=== PATIENT | female | born 1945 | race Caucasian/White ===

== ENCOUNTER 2016-11-13 10:13 | Emergency (ER) | payer MEDICARE, OTHER ==
[2016-11-13] MEDS ORDERED: HYDROmorphone 2 MG/ML SDV IM ONE (10:37)
[2016-11-13] MEDS ORDERED: Ketorolac 30 MG/ML SDV IVPUSH ONE (11:27)
[2016-11-13] MEDS ORDERED: Iopamidol 755 Mg/ML 75 ML Bottle IV ONE (11:51)
[2016-11-13] MEDS ORDERED: Calcium Gluconate 10% 1 GM/10 ML SDV IVPUSH ONE (12:38)
[2016-11-13 13:29] VITALS: BP 136/77
--- NOTE | 2016-11-13 13:47 | ER ---
DATE SEEN: 11/13/2016 CHIEF COMPLAINT: Neck pain. HISTORY OF PRESENT ILLNESS: This is a 71-year-old female complaining of neck pain for 2 days. She had a thyroidectomy, but the pain is more in the posterior aspect of the neck. Oxycodone and acetaminophen have not been helpful. REVIEW OF SYSTEMS: No chest pain. No shortness of breath. The pain does not seem to radiate anywhere. Movement makes it worse. ALLERGIES AND MEDICATIONS: Reviewed and updated on the electronic record. PHYSICAL EXAMINATION: VITAL SIGNS: Blood pressure is normal. Temperature is 97.9. ENT: Negative. NECK: Decreased range of motion. Tenderness in the paraspinal cervical muscles. The thyroidectomy scar appears to be intact with no signs of infection. CARDIOVASCULAR: Normal. RESPIRATORY: Clear. MENTAL STATUS: Alert. LABORATORY DATA: White cell count of 10.9. Sodium 133, potassium 3.6, and calcium 7.8. TSH was within reference range. CT of soft tissue neck, no compromise of the airway. FINAL IMPRESSION: 1. Neck pain, musculoskeletal. 2. Hypocalcemia. PLAN: One ampule of calcium gluconate was given, initially gave her Dilaudid which did not help much. Ketorolac 15 mg IV helped significantly. I discharged her home to continue her regular medications and follow up as previously scheduled. Time seen was 1300 hours. /[id number] LIOR/TRUONG
== END 2016-11-13 13:27 | disposition home or self-care (01) ==
LOC: FB.ED 10:13
DX: M54.2 Cervicalgia (principal); E83.51 Hypocalcemia; E89.0 Postprocedural hypothyroidism
CPT/HCPCS: 36415; 70491; 80053; 84443; 85025; 96372; 96374; 96375; 99283; 99284; J0610; J1170; J1885; Q9967

== ENCOUNTER 2016-11-14 11:46 | Emergency (ER) | payer MEDICARE, OTHER ==
[2016-11-14] MEDS ORDERED: Ketorolac 30 MG/ML SDV IM STA (11:56)
--- NOTE | 2016-11-14 12:17 | EDM.PDOC ---
ED HPI GENERAL MEDICAL PROBLEM - General Chief Complaint: General Stated Complaint: NECK PAIN Time Seen by Provider: 11/14/16 11:56 Source of Information: Reports: Patient, Family History Limitations: Reports: No Limitations - History of Present Illness INITIAL COMMENTS - FREE TEXT/NARRATIVE: 71 years old w f s/p partial thyroidectomy last saturday, came to the ed due to posterior neck pain. Pt was in this ed before for same. She received a pain shot and was sent home with pain meds. Pt ran out of pain meds. Pt denies trauma. Pt denies any other acute medical issue at this time. Onset: Gradual Onset Date: 11/14/16 Onset Time: 06:00 Duration: Hour(s):, Intermittent Location: Reports: Neck Quality: Reports: Ache Severity: Moderate Improves with: Reports: Cold Therapy, Medication Worsens with: Reports: Movement Context: Reports: Other (s/p neck surgery) Associated Symptoms: Reports: No Other Symptoms Neck Pain Score (Numeric/FACES): 5 - Related Data Allergies Allergy/AdvReac Type Severity Reaction Status Date / Time Sulfa (Sulfonamide Allergy Rash Verified 11/14/16 11:55 Antibiotics) Home Meds: Home Meds buPROPion HCl [Wellbutrin Xl] 150 mg PO DAILY 10/04/14 [History] buPROPion HCl [Wellbutrin Xl] 300 mg PO DAILY 10/04/14 [History] busPIRone HCl [Buspirone HCl] 7.5 mg PO DAILY 10/04/14 [History] Alum Hydrox/Mag Hydrox/Simeth [Mag-Al Plus] 30 ml PO BEDTIME PRN 11/13/16 [ History] Calcium Carbonate/Vitamin D3 [Oyster Shell Calcium with Vitamin D] 1 tab PO ASDIRECTED 11/13/16 [History] Cyclobenzaprine [Flexeril] 1 tab PO TID PRN 11/13/16 [History] Omeprazole 20 mg PO BEDTIME 11/13/16 [History] amLODIPine [Norvasc] 1 tab PO DAILY 11/13/16 [History] oxyCODONE HCl/Acetaminophen [oxyCODONE-Acetaminophen 5-325] 1 tab PO Q6H [History] Ibuprofen [Motrin] 600 mg PO Q8H PRN #30 tab 11/14/16 [Rx] Past Medical History - Past Surgical History Other Female Surgeries/Procedures: KIDNEY SURGERY TO REMOVE STONE Other Musculoskeletal Surgeries/Procedures:: back surgery, Lumbar Social & Family History - Tobacco Use Smoking Status *Q: Never Smoker Second Hand Smoke Exposure: No - Caffeine Use Caffeine Use: Reports: Coffee - Alcohol Use Days Per Week of Alcohol Use: 1 Number of Drinks Per Day: 1 Total Drinks Per Week: 1 - Recreational Drug Use Recreational Drug Use: No - Living Situation & Occupation Living situation: Reports: ED ROS GENERAL - Review of Systems Review Of Systems: See Below Constitutional: Reports: No Symptoms HEENT: Reports: No Symptoms Respiratory: Reports: No Symptoms Cardiovascular: Reports: No Symptoms Endocrine: Reports: No Symptoms GI/Abdominal: Reports: No Symptoms : Reports: No Symptoms Musculoskeletal: Reports: Neck Pain Skin: Reports: No Symptoms Neurological: Reports: No Symptoms Psychiatric: Reports: No Symptoms Hematologic/Lymphatic: Reports: No Symptoms Immunologic: Reports: No Symptoms ED EXAM, GENERAL - Physical Exam Exam: See Below Exam Limited By: No Limitations General Appearance: Alert, WD/WN, Mild Distress Eye Exam: Bilateral Eye: Normal Inspection Ears: Normal External Exam Ear Exam: Bilateral Ear: Auricle Normal Nose: Normal Inspection, Normal Mucosa Throat/Mouth: Normal Inspection, Normal Lips Head: Atraumatic, Normocephalic Neck: Normal Inspection, Supple, Non-Tender Respiratory/Chest: No Respiratory Distress Cardiovascular: Normal Peripheral Pulses, Regular Rate, Rhythm Peripheral Pulses: 1+: Femoral (L), Femoral (R) GI/Abdominal: Normal Bowel Sounds, Soft, Non-Tender, No Organomegaly (Female) Exam: Deferred Rectal (Female) Exam: Deferred Back Exam: Decreased Range of Motion, Paraspinal Tenderness Extremities: Normal Inspection, Normal Range of Motion, Non-Tender, No Pedal Edema Neurological: Alert, Oriented, CN II-XII Intact, Normal Cognition, Normal Gait Psychiatric: Normal Affect, Normal Mood Skin Exam: Warm, Dry, Intact, Normal Color, No Rash Lymphatic: No Adenopathy Course - Vital Signs Text/Narrative:: 71 years old w f s/p partial thyroidectomy last saturday, came to the ed due to posterior neck pain. Pt was in this ed before for same. She received a pain shot and was sent home with pain meds. Pt ran out of pain meds. Pt denies trauma. Pt denies any other acute medical issue at this time. PE: Paravertebral tenderness of posterior neck Imaging: Not indicated Impression: Paravertebral tenderness of posterior neck Tx: Toradol 30 mg i.m, ICE to neck Reexam: Improved Plan: D/C with intructions Last Recorded V/S: Last Vital Signs Temp 36.6 C 11/14/16 11:56 Pulse 76 11/14/16 12:42 Resp 16 11/14/16 12:42 BP 111/76 11/14/16 12:42 Pulse Ox 98 11/14/16 12:42 - Orders/Labs/Meds Orders: Active Orders 24 hr Category Date Time Status Cooling Warming Measures [RC] ASDIRECTED Care 11/14/16 12:06 Active Ice Bag [Ice Therapy] [OM.PC] Routine Oth 11/14/16 12:06 Ordered Meds: Medications Discontinued Medications Generic Name Dose Route Start Last Admin Trade Name Freq PRN Reason Stop Dose Admin Ketorolac Tromethamine 30 mg 11/14/16 11:56 11/14/16 12:08 Toradol IM 11/14/16 11:57 30 mg ONETIME STA Administration Departure - Departure Time of Disposition: 12:48 Disposition: Home, Self-Care 01 Condition: Good Clinical Impression: Neck sprain Qualifiers: Encounter type: subsequent encounter Qualified Code(s): S13.9XXD - Sprain of joints and ligaments of unspecified parts of neck, subsequent encounter - Discharge Information Prescriptions: Ibuprofen [Motrin] 600 mg PO Q8H PRN #30 tab PRN Reason: neck pain Referrals: Noah Taveras MD [Primary Care Provider] - Forms: ED Department Discharge Additional Instructions: Please apply ice to neck, please take motrin with food as recommended, please f/ u, please come back if your symptoms get worse acutely - My Orders Last 24 Hours: My Active Orders 11/14/16 12:06 Cooling Warming Measures [RC] ASDIRECTED Ice Bag [Ice Therapy] [OM.PC] Routine - Assessment/Plan Last 24 Hours: My Active Orders 11/14/16 12:06 Cooling Warming Measures [RC] ASDIRECTED Ice Bag [Ice Therapy] [OM.PC] Routine
[2016-11-14 12:43] VITALS: BP 111/76
== END 2016-11-14 12:55 | disposition home or self-care (01) ==
LOC: FB.ED 11:46
DX: S13.9XXD Sprain of joints and ligaments of unspecified parts of neck, subsequent encounter (principal); Z88.2 Allergy status to sulfonamides; Z79.899 Other long term (current) drug therapy; Z98.890 Other specified postprocedural states; X58.XXXD Exposure to other specified factors, subsequent encounter
CPT/HCPCS: 96372; 99282; J1885

== ENCOUNTER 2017-06-27 18:05 | Emergency (ER) | payer MEDICARE, OTHER ==
[2017-06-27] MEDS ORDERED: Sodium Chloride 0.9% 10 ML Syringe FLUSH PRN (19:29)
[2017-06-27] MEDS ORDERED: Sodium Chloride 0.9% 1,000 ML IV SCH (19:30)
[2017-06-27] MEDS ORDERED: Ondansetron 4 MG/2 ML SDV IVPUSH ONE (19:31)
[2017-06-27] MEDS ORDERED: Levofloxacin/Dextrose 5%-Water 500 MG in Premix Bag 1 BAG IV ONE (20:26)
[2017-06-27 22:52] VITALS: BP 126/55
--- NOTE | 2017-06-28 04:19 | ER ---
DATE SEEN: 06/27/2017 CHIEF COMPLAINT: Weakness. HPI: Soraida is a 72-year-old female complaining of weakness generalized, started yesterday. In addition, she has diarrhea and vomiting. Denies any fever or chills or urinary symptoms. PAST MEDICAL HISTORY: Headache due to giant cell arteritis, hyperparathyroidism with frequent kidney stones, major depression, anxiety. ALLERGIES: Sulfa. CURRENT MEDICATIONS: Reviewed. Please see the nurse's notes and the electronic record. PHYSICAL EXAM: GENERAL: She is well hydrated. VITAL SIGNS: Her blood pressure is 122/55, temp is 101.1, pulse is 81, normal oxygenation. EARS, NOSE, and THROAT: Negative. NECK: Supple. CHEST: Clear breath sounds. ABDOMEN: Soft and benign. EXTREMITIES: No edema. LABORATORY DATA: White cell count 17.6. Electrolytes are normal except potassium is 3.3. UA showed more than 20-30 red cells and white cells more than 100 per high power field. IMPRESSION: 1. Gastroenteritis. 2. Acute febrile illness. 3. Bacteriuria. PLAN: 1 L of normal saline was given, 8 mg of Zofran, and 1 dose of Levaquin 500 mg IV, ceftriaxone 1 g. I will send her home on Levaquin 500 mg p.o. daily. We will set up a urine culture and advised the patient to drink fluids. Follow up in the office within 24 hours with PCP. TIME SEEN: 2030 hours. /[id number] LIOR/TRUONG
--- NOTE | 2017-06-28 11:06 | CR ---
INDICATION: Fever. CHEST: PA and lateral views of the chest, 06/27/2017, were compared with 2014 portable, and revealed the heart to be enlarged, the aorta tortuous with calcification in the arch. Overlying snaps are noted. A dextroconcave scoliosis of the lower thoracic spine most likely is compensatory to a dextroconvex scoliosis in the lumbar area. Somewhat demineralized appearance of the bony structures suggests the possibility of osteoporosis - correlate clinically. A definite active infiltrate or effusion was not identified. There is a mild degree of hyperaeration, very minimal flattening of diaphragm leaves and prominent AP diameter all raising question of COPD - correlate clinically, however. IMPRESSION: 1. No definite acute process - no specific area of pneumonia identified. 2. ASHD with mild cardiomegaly. 3. Mild scoliosis. 4. Possible COPD - correlate clinically. 5. Suggestion of osteoporosis - correlate clinically. MTDD
== END 2017-06-27 22:20 | disposition home or self-care (01) ==
LOC: FB.ED 18:05
DX: K52.9 Noninfective gastroenteritis and colitis, unspecified (principal); R82.71 Bacteriuria; Z88.2 Allergy status to sulfonamides
CPT/HCPCS: 36415; 71046; 80048; 81001; 84484; 85025; 87086; 87088; 87186; 96361; 96365; 96375; 99283; J1956; J2405; J7040; J7050

== ENCOUNTER 2018-01-24 10:41 | Inpatient (IN) | payer MEDICARE, OTHER ==
[2018-01-24] MEDS ORDERED: ALPRAZolam 1 MG Tab PO PRN (15:11)
[2018-01-24] MEDS: oxyCODONE 5 MG Tab PO PRN (15:43)
[2018-01-24] MEDS: Acetaminophen 500 MG Tab PO SCH (17:02)
[2018-01-24] MEDS: busPIRone 15 MG Tab PO SCH (20:12)
[2018-01-24] MEDS: Apixaban 5 MG Tab PO SCH (20:12)
[2018-01-24] MEDS: cycloSPORINE Ophth Drops U/D Box of 30 EYEBOTH SCH (20:13)
[2018-01-24] MEDS: Propranolol 60 MG Cap.ER PO SCH (20:13)
[2018-01-25] MEDS: Acetaminophen 500 MG Tab PO SCH ×2 (00:30→10:09)
[2018-01-25] MEDS: Pantoprazole 40 MG Tab.CR PO SCH (05:46)
[2018-01-25] MEDS: Levothyroxine 112 MCG Tab PO SCH (05:46)
[2018-01-25] MEDS ORDERED: Non-Formulary Medication 1 Each (Bupropion Hcl [Wellbutrin Xl] 300 MG) PO SCH (09:00)
[2018-01-25] MEDS: cycloSPORINE Ophth Drops U/D Box of 30 EYEBOTH SCH ×2 (10:08→21:00)
[2018-01-25] MEDS: Apixaban 5 MG Tab PO SCH ×2 (10:09→20:59)
[2018-01-25] MEDS: buPROPion 150 MG Tab.ER PO SCH (10:10)
[2018-01-25] MEDS: Calcium Carbonate/Vitamin D3 1250 MG-200 Unit Tab PO SCH (10:11)
[2018-01-25] MEDS: busPIRone 15 MG Tab PO SCH ×2 (10:12→20:59)
[2018-01-25] MEDS: amLODIPine 5 MG Tab PO SCH (10:13)
--- NOTE | 2018-01-25 12:31 | PN ---
DATE SEEN: 01/25/2018 SUBJECTIVE: Soraida Claros is a 72-year-old female, admitted on 01/23 to [facility] for rehab. She underwent a left total knee arthroplasty on 01/21. Doing well. Comfortable through the night. The pain appears to be controlled primarily when she is up and about. Did have a good bowel movement today. LABORATORY DATA: None indicated. PHYSICAL EXAMINATION: VITAL SIGNS: 36.6, 121/64, 18, and 95%. GENERAL: As always in good spirits. NECK: Benign. Thyroid small. CHEST: Clear in all lung jonas. HEART: No ectopy or murmur. ABDOMEN: Benign. EXTREMITIES: Left knee wound without complaint, ecchymosis resolving. ASSESSMENT: Rehab intervention post surgical intervention, left total knee arthroplasty. PLAN: Medications, care and treatment appropriate. Pain is controlled. Slept well, good bowel movement, DVT prevention in place. Timing appropriate care. /[id number] STEPHANIE/TRUONG
[2018-01-25] MEDS: Propranolol 60 MG Cap.ER PO SCH (21:00)
[2018-01-25] MEDS: oxyCODONE 5 MG Tab PO PRN (21:05)
[2018-01-26] MEDS: Acetaminophen 500 MG Tab PO SCH ×4 (00:18→15:54)
[2018-01-26] MEDS: Pantoprazole 40 MG Tab.CR PO SCH (04:59)
[2018-01-26] MEDS: Levothyroxine 112 MCG Tab PO SCH (04:59)
[2018-01-26] MEDS: cycloSPORINE Ophth Drops U/D Box of 30 EYEBOTH SCH ×2 (09:00→21:30)
[2018-01-26] MEDS: Apixaban 5 MG Tab PO SCH ×2 (09:06→21:29)
[2018-01-26] MEDS: buPROPion 150 MG Tab.ER PO SCH (09:06)
[2018-01-26] MEDS: amLODIPine 5 MG Tab PO SCH (09:06)
[2018-01-26] MEDS: busPIRone 15 MG Tab PO SCH ×2 (09:07→21:29)
[2018-01-26] MEDS: Calcium Carbonate/Vitamin D3 1250 MG-200 Unit Tab PO SCH (09:07)
--- NOTE | 2018-01-26 11:38 | PN ---
DATE SEEN: 01/26/2018 SUBJECTIVE: Soraida Claros is a 72-year-old, female, admitted to [facility] for rehab. Underwent right total knee arthroplasty last week, doing well. A little bit disgruntled about the lack of therapy over the weekend. Requests going home. The pain is controlled only with ambulation. Ice has been provided with some routineness. OBJECTIVE: VITAL SIGNS: 36.7, 144/74, 18, and 90. GENERAL: Appears comfortable. CHEST: Clear in all lung jonas. HEART: Without ectopy or murmur. ABDOMEN: Benign. EXTREMITIES: Surgical knee wound intact. Dressing in place. Appropriate ecchymoses. ASSESSMENT: Left total knee arthroplasty, rehab. PLAN: We will keep until the morning, PT, final evaluation, discharge accordingly. /[id number] STEPHANIE/TRUONG
[2018-01-26] MEDS: Propranolol 60 MG Cap.ER PO SCH (21:30)
[2018-01-27] MEDS: Acetaminophen 500 MG Tab PO SCH ×2 (00:07→08:34)
[2018-01-27] MEDS: Levothyroxine 112 MCG Tab PO SCH (05:55)
[2018-01-27] MEDS: Pantoprazole 40 MG Tab.CR PO SCH (05:55)
--- NOTE | 2018-01-27 07:15 | HP ---
ADMISSION DATE: 01/24/2018 REASON FOR ADMISSION: Post rehab care, left total knee arthroplasty. HISTORY OF PRESENT ILLNESS: Soraida Claros is a 72-year-old, female, [place] resident, was admitted to [facility] on 01/24/2018 for post total left total knee rehab intervention. Underwent a left total knee arthroplasty under general anesthesia on 01/21/[address] Leonidas Aviles. Intraoperative and postoperative course without complication. Discharge hemoglobin 9.5, preop 13.8. No complicating issues in terms of her surgical management. At [facility] for rehab intervention. Daily med recon list reviewed and appropriate. ALLERGIES: Allergic to sulfa, hives. No other medication, environmental, or latex allergies. PAST SURGICAL HISTORY: Significant for multiple surgical procedures including previous hysterectomy with ovaries intact, previous bladder surgery, right total knee arthroplasty in 2011, history of kidney stones on 2 occasions in 2013 and 2016, bilateral cataract surgery, lumbar disk surgery, right inguinal herniorrhaphy, temporal artery biopsy, and thyroidectomy for benign disease. PAST MEDICAL HISTORY: Chronic illnesses include treated hypothyroidism, intermittent anxiety, mood disorder, and hypertension. 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 Never smoked. Minimal alcohol consumption. No illicit drug use. FAMILY HISTORY: Negative for early heart disease, diabetes mellitus, or inheritable cancers. REVIEW OF SYSTEMS: Doing pretty well. Pain has been reasonably well controlled. EYES: Sees well. Cataract surgery. EARS: Hears well. Some difficulty in crowds. OROPHARYNX: Intact dentition. GASTROINTESTINAL: Bowels are fine, a little bit of constipation. GENITOURINARY: Voids without difficulty. Mild stress incontinence. SKIN: No open sores or lesions, wound healing well. PSYCHIATRIC: Mood stable. OBJECTIVE: VITAL SIGNS: 36.2, pulse of 64, 123/61, mean blood pressure 81, respirations 16, O2 saturation 97%. GENERAL: In good spirits. Up in her wheelchair. Pain is reasonable. HEENT: Funduscopic benign. Conjunctivae clear. Bright tympanic membranes. Clear nasal discharge. Mouth and oropharynx clear. NECK: Benign. Thyroid small. CHEST: Clear in all lung jonas. No adventitious sounds. HEART: Distant heart sounds. Normal S1, S2 without S3, S4, or murmur. BREASTS: Exam deferred. ABDOMEN: Benign. Surgical scars well healed. No hepatosplenomegaly. GENITOURINARY AND RECTAL: Deferred. EXTREMITIES: Well perfused. Sensation intact. Toes downgoing. Plantar flexion. Small hammertoe changes. Surgical wound, right knee, remote, well- healed. Surgical wound, left knee, dressing in place, intact, moderate ecchymosis. ASSESSMENT: Post rehab care, left total knee arthroplasty. PLAN: Good postsurgical option, good candidate for rehab, motivated to do so. Medications reviewed and appropriate, anticoagulant therapy in place, analgesics as appropriate, PT/OT to be involved. /[id number] STEPHANIE/TRUONG
[2018-01-27] MEDS: Calcium Carbonate/Vitamin D3 1250 MG-200 Unit Tab PO SCH (08:33)
[2018-01-27] MEDS: busPIRone 15 MG Tab PO SCH (08:35)
[2018-01-27] MEDS: Apixaban 5 MG Tab PO SCH (08:36)
[2018-01-27] MEDS: amLODIPine 5 MG Tab PO SCH (08:38)
[2018-01-27] MEDS: cycloSPORINE Ophth Drops U/D Box of 30 EYEBOTH SCH (08:40)
[2018-01-27] MEDS: buPROPion 150 MG Tab.ER PO SCH (08:42)
[2018-01-27 08:47] VITALS: BP 145/86
--- NOTE | 2018-01-28 13:02 | DISCH ---
DISCHARGE DATE: 01/27/2018 HOSPITAL COURSE: Soraida Claros is a 72-year-old female, admitted to swing bed to [facility] in [place] on Saturday the . She has had a previous left total knee arthroplasty done at [facility]. Dr. Leonidas Aviles provider of record and hospital course was without complication. Discharge hemoglobin 9.5, preop . Uneventful short course. PT was involved. Ambulation was satisfactory. Pain was controlled with Tylenol only. Wound was inspected on daily basis and without complicating issue. She has a followup with Dr. Aviles, orthopedics upcoming, discharged home on Eliquis for 4 months' duration given history of DVT in the past. Analgesics; Tylenol up to 3000 mg in divided doses. Wound care instructions as appropriate. PHYSICAL EXAMINATION: VITAL SIGNS: At the time of discharge; weight 74.7 kg, 36.8 degrees Fahrenheit, 148/83, 18, 95%. GENERAL: Comfortable, conversant. NECK: Benign. Thyroid small. CHEST: Clear in all lung jonas. HEART: Regular without ectopy or murmur. ABDOMEN: Benign. EXTREMITIES: Wound left knee with dressing in place and intact. Minimal ecchymosis. Discharged home in good condition. /[id number] /TRUONG
--- OUTSIDE RECORDS SUMMARY | 2018-01-28 15:26 | XMSREPORT | Summary of Care ---
:1945 Author Organization [facility] Address [address] [place] [address] Phone Care Team Providers Name Role Phone Noah Taveras MD Primary Care Provider Noah Taveras MD Attributed Provider Reason for Visit Auth/Cert (Routine) Status Reason Specialty Diagnoses / Referred By Referred To Procedures Contact Contact Continuity of Care Diagnoses Unilateral primary osteoarthritis, left knee Friederic, Procedures ARTHROPLASTY KNEE CONDYLE & PLATEAU MEDIAL & LAT COMPARTMENTS [facility] GIOVANNY Lauren MD [address] [place] [id number] Encounter Details Date Type Department Care Team Description 01/21/2018 - Hospital Encounter [facility] Alan, Status post total 01/24/2018 [facility] Lauren MD left knee [address] [place] [address] [place] [address] [place], [place] [phone] [id number] [phone] Allergies Active Allergy Reactions Severity Noted Date Comments Sulfa Drugs Hives (High), Rash High 12/06/2011 as of this encounter Medications Prescription Sig. Disp. Refills Start End Status Date Date cycloSPORINE (RESTASIS) Place 1 drop 180 vial 1 04/11/20 Active 0.05 % ophthalmic into both eyes 17 emulsionIndications: 2 times a day Keratoconjunctivitis sicca due to decreased tear production, bilateral omeprazole (PRILOSEC) 20 Take 1 capsule 90 capsule 0 12/20/19 Active mg capsuleIndications: (20 mg) by 18 Gastroesophageal reflux mouth 1 time a disease without day in the esophagitis morning levothyroxine 112 mcg Take 1 tablet 90 tablet 0 01/08/20 Active tabletIndications: (112 mcg) by 18 Hyperparathyroidism, mouth 1 time primary per day Multiple Take 1 capsule Active Vitamins-Minerals by mouth 1 time (OCUVITE ADULT 50+ PO) per day calcium Take 2 tablets Active carbonate-vitamin D by mouth 1 time (CALCIUM + D3) 600 a day with mg-800 unit tablet breakfast oxyCODONE (OXY-IR) 5 mg Take 1 tablet 30 tablet 0 01/25/20 Active tablet (immediate (5 mg) by mouth 18 release)Indications: Every 4 hours Status post total left as needed for knee replacement moderate pain or severe pain (surgical pain) Earliest Fill Date: 01/24/18 acetaminophen (TYLENOL) Take 2 tablets 100 tablet 0 01/25/20 Active 500 mg (1,000 mg) by 18 tabletIndications: mouth Every 8 Status post total left hours knee replacement ALPRAzolam (XANAX) 1 mg TAKE 1 TABLET 3 45 tablet 2 01/25/20 Active tabletIndications: Mood TIMES A DAY 18 disorder NEEDED FOR ANXIETY GENERIC FOR XANAX busPIRone (BUSPAR) 15 mg Take 0.5 90 tablet 3 01/25/20 Active tabletIndications: tablets (7.5 18 Depressive disorder mg) by mouth 2 times a day apixaban (ELIQUIS) 2.5 Take 1 tablet 19 tablet 0 01/25/20 Active MG tabletIndications: (2.5 mg) by 18 Prophylaxis of DVT in mouth 2 times a Orthopedic Surgery day Indications: Prophylaxis of Deep Vein Thrombosis in Orthopedic Surgery buPROPion (WELLBUTRIN TAKE 1 TABLET 90 tablet 0 01/25/20 Active XL) 150 mg tablet (24 DAILY (ALONG 18 hr)Indications: WITH 300MG) Depressive disorder GENERIC WELLBUTRIN XL buPROPion (WELLBUTRIN TAKE 1 TABLET 90 tablet 0 01/25/20 Active XL) 300 mg tablet (24 DAILY BY MOUTH 18 hr)Indications: (ALONG WITH 150 Depression, unspecified MG) GENERIC depression type, Anxiety WELLBUTRIN XL state citalopram (CELEXA) 40 TAKE 1 TABLET 90 tablet 0 01/25/20 Active mg tabletIndications: EVERY DAY 18 Mood disorder propranolol (INDERAL LA) Take 3 capsules 0 01/25/20 Active 60 mg extended release (180 mg) by 18 capsuleIndications: mouth every Essential hypertension night at bedtime amLODIPine (NORVASC) 5 Take 1 tablet 0 01/25/20 Active mg tabletIndications: (5 mg) by mouth 18 Essential hypertension 1 time per day senna-docusate sodium Take 1 tablet 60 tablet 0 01/25/20 Active (SENOKOT-S;PERICOLACE) by mouth 2 18 8.6-50 MG times a day For tabletIndications: constipation Status post total left knee replacement polyethylene glycol Take 1 packet 0 01/26/20 Active (MIRALAX) by mouth 1 time 18 packetIndications: per day Status post total left Dissolve in 4 knee replacement to 8 ounces of water, juice, soda, coffee, tea. acetaminophen (TYLENOL) Take 1,000 mg Discontinued 500 mg tablet by mouth every 018 4 to 6 hours as needed for mild pain acetaminophen-codeine #3 TAKE 1-2 30 tablet 0 04/10/20 Discontinued (TYLENOL #3) 300-30 mg TABLETS BY 17 018 tabletIndications: MOUTH 3 TIMES A Chronic pain syndrome DAY NEEDED FOR PAIN busPIRone (BUSPAR) 15 mg Take 0.5 90 tablet 3 05/23/19 Suspended tabletIndications: tablets (7.5 18 018 Depressive disorder mg) by mouth 2 times a day HYDROcodone-acetaminophe Take 1-2 40 tablet 0 06/13/19 Discontinued n (NORCO) 5-325 mg tablets by 18 018 tabletIndications: mouth every 6 Chronic nonintractable hours as needed headache, unspecified for moderate headache type, pain or severe Postoperative pain, Pain pain of left hip joint ALPRAzolam (XANAX) 1 mg TAKE 1 TABLET 3 45 tablet 2 07/19/19 Suspended tabletIndications: Mood TIMES A DAY disorder NEEDED FOR ANXIETY GENERIC FOR XANAX amLODIPine (NORVASC) 2.5 Take 1 tablet Discontinued mg tablet by mouth 1 time 018 per day buPROPion (WELLBUTRIN TAKE 1 TABLET 90 tablet 0 11/06/19 Suspended XL) 300 mg tablet (24 DAILY BY MOUTH 18 018 hr)Indications: (ALONG WITH 150 Depression, unspecified MG) GENERIC depression type, Anxiety WELLBUTRIN XL state buPROPion (WELLBUTRIN TAKE 1 TABLET 90 tablet 0 11/27/19 Suspended XL) 150 mg tablet (24 DAILY (ALONG 18 018 hr)Indications: WITH 300MG) Depressive disorder GENERIC WELLBUTRIN XL esomeprazole (NEXIUM) 40 Take 1 capsule 90 capsule 3 12/06/19 Discontinued mg capsuleIndications: (40 mg) by Gastroesophageal reflux mouth 1 time a disease without day in the esophagitis morning citalopram (CELEXA) 40 TAKE 1 TABLET 30 tablet 0 12/27/19 Discontinued mg tabletIndications: ONE TIME PER 018 Mood disorder DAY. GENERIC CELEXA nitrofurantoin monohyd One pill by 30 capsule 4 01/09/20 Discontinued macro (MACROBID) 100 mg mouth twice capsuleIndications: daily for one Mixed stress and urge week and than urinary incontinence, one pill daily SUSAN (stress urinary for incontinence, female), prophylaxis. UPJ (ureteropelvic junction) obstruction, Incomplete bladder emptying, Acute lower UTI (urinary tract infection) citalopram (CELEXA) 40 TAKE 1 TABLET 90 tablet 0 01/21/20 Suspended mg tabletIndications: EVERY DAY 018 Mood disorder amLODIPine (NORVASC) 5 Take 5 mg by Suspended mg tablet mouth 1 time 018 per day propranolol (INDERAL LA) Take 180 mg by Suspended 60 mg extended release mouth every 018 capsule night at bedtime acetaminophen (TYLENOL) Take 2 tablets 60 tablet 0 01/23/20 Discontinued 500 mg (1,000 mg) by tabletIndications: mouth 3 times a Status post total left day knee replacement oxyCODONE (OXY-IR) 5 mg Take 1-2 50 tablet 0 01/23/20 Discontinued tablet (immediate tablets (5-10 18 018 release)Indications: mg) by mouth Status post total left every 4 to 6 knee replacement hours as needed for moderate pain or severe pain apixaban (ELIQUIS) 2.5 Take 1 tablet 23 tablet 0 01/23/20 Discontinued MG tabletIndications: (2.5 mg) by 18 018 Prophylaxis of DVT in mouth 2 times a Orthopedic Surgery day Indications: Prophylaxis of Deep Vein Thrombosis in Orthopedic Surgery senna-docusate sodium Take 1 tablet 30 tablet 0 01/23/20 Discontinued (SENOKOT-S;PERICOLACE) by mouth 2 18 018 8.6-50 MG times a day tabletIndications: Status post total left knee replacement morphine sulfate (MS Take 1 tablet 10 tablet 0 01/23/20 Discontinued CONTIN) 15 mg SR tablet (15 mg) by 18 018 (12 hr)Indications: mouth 2 times a Status post total left day knee replacement acetaminophen (TYLENOL) Take 2 tablets 100 tablet 0 01/24/20 Discontinued 500 mg (1,000 mg) by 18 018 tabletIndications: mouth Every 8 Status post total left hours knee replacement apixaban (ELIQUIS) 2.5 Take 1 tablet 19 tablet 0 01/24/20 Discontinued MG tabletIndications: (2.5 mg) by 18 018 Prophylaxis of DVT in mouth 2 times a Orthopedic Surgery day Indications: Prophylaxis of Deep Vein Thrombosis in Orthopedic Surgery senna-docusate sodium Take 1 tablet 60 tablet 0 01/24/20 Discontinued (SENOKOT-S;PERICOLACE) by mouth 2 18 018 8.6-50 MG times a day For tabletIndications: constipation Status post total left knee replacement as of this encounter Active Problems Problem Noted Date Acute blood loss anemia 01/23/2018 Status post total left knee replacement 01/21/2018 History of DVT (deep vein thrombosis) 01/17/2018 Osteoarthritis of left knee 01/10/2018 Acute lower UTI (urinary tract infection) 01/08/2018 Lumbar post-laminectomy syndrome 01/27/2016 Hyperopia 12/12/2015 Astigmatism 12/12/2015 Presbyopia - Both 12/12/2015 Macular retinal cyst - Right 07/20/2013 Pseudophakia - Both 07/20/2013 RPE mottling of macula - Right 07/20/2013 Incomplete bladder emptying 01/08/2013 Mixed incontinence urge and stress (male)(female) 01/08/2013 Osteoarthrosis, hand 07/26/2009 Congenital spondylolisthesis 07/11/2009 Essential hypertension 03/03/2009 Anxiety state 04/24/2005 Hypothyroidism 04/24/2005 Depressive disorder 04/24/2005 as of this encounter Resolved Problems Problem Noted Date Resolved Date Hyperparathyroidism, primary 10/15/2016 01/17/2018 Retained ureteral stent 10/01/2016 11/08/2016 Sacroiliitis 08/31/2015 01/17/2018 Overview: left Closed fracture of distal end of ulna 07/18/2015 01/17/2018 Overview: Right distal ulna fracture Hydronephrosis 12/10/2013 12/09/2017 Headache behind the eye - Left 12/02/2013 01/17/2018 Displacement of ureteral stent 07/01/2013 05/24/2015 Sepsis due to urinary tract infection 06/28/2013 01/17/2018 UPJ (ureteropelvic junction) obstruction 06/26/2013 01/17/2018 Gross hematuria 06/11/2013 05/24/2015 Renal calculus, right 06/11/2013 01/17/2018 half-way current use of anticoagulant 10/02/2012 06/16/2013 DVT, lower extremity 07/23/2012 01/17/2018 Special screening for other specified conditions(V82.89) 08/17/20112017 Inguinal hernia 01/17/2018 Spinal stenosis, lumbar region, without neurogenic claudication 01/17/2018 as of this encounter Immunizations Name Dates Previously Given Next Due DT (pediatric) 07/26/2006, 07/28/1996 FLU VACCINE HIGH DOSE 65YR+ 01/21/2018, 06/13/2017, 04/20/2016, 04/23/2014, 02/04/2012 Influenza Vaccine,unspecified 02/04/2012, 02/10/2009 Pneumococcal Conj PCV13 04/20/2016 Pneumococcal Polysaccharide PPSV23 10/06/2011 TD(adult)adsorbed 09/16/2006 TDAP 04/20/2016 Td 07/26/2006 Zoster Live(Zostavax) 01/18/2015 as of this encounter Social History Tobacco Use Types Packs/Day Years Used Date Never Smoker Smokeless Tobacco: Never Used Alcohol Use Drinks/Week oz/Week Comments Yes 0-1 Glasses of wine 0.0 - 1.2 0-1 Cans of beer Sex Assigned at Date Recorded Not on file as of this encounter Last Filed Vital Signs Vital Sign Reading Time Taken Blood Pressure 154/78 01/24/2018 8:12 AM CDT Pulse 68 01/24/2018 8:12 AM CDT Temperature 36.8 C (98.3 F) 01/24/2018 8:12 AM CDT Respiratory Rate 16 01/24/2018 8:12 AM CDT Oxygen Saturation 92% 01/24/2018 8:12 AM CDT Inhaled Oxygen Concentration - - Weight 75.6 kg (166 lb 10.7 oz) 01/21/2018 8:41 AM CDT Height 160 cm (5' 3") 01/21/2018 8:41 AM CDT Body Mass Index 29.52 01/21/2018 8:41 AM CDT in this encounter Functional Status Functional Status Response Date of Assessment Is the person deaf or does he/she have serious difficulty No 01/14/2018 hearing? Is this person blind or does he/she have difficulty No 01/14/2018 seeing even when wearing glasses? Do you have difficulty with walking, balance, climbing Yes 01/14/2018 stairs, or had a fall in the last 3 months? Does the patient have difficulty dressing or bathing? No 01/14/2018 Because of a physical, mental, or emotional condition; No 01/14/2018 does this person have difficulty doing errands alone such as visiting a doctor's office or shopping? Cognitive Status Response Date of Assessment Because of a physical, mental, or emotional condition; No 01/14/2018 does this person have serious difficulty concentrating, remembering, or making decisions? as of this encounter Discharge Summaries Rakesh Chavez PA - 01/24/2018 7:13 AM CDTFormatting of this note may be different from the original. Hospital Discharge Summary Attending Physician: Leonidas Aviles MD Attending Physician Specialty: Orthopedic Surgery Admit Date: 01/21/2018 Discharge Date: 01/24/18 Primary Care Physician: Noah Taveras MD Discharge Diagnoses Principal Problem: Status post total left knee replacement Active Problems: Hypothyroidism Depressive disorder Essential hypertension History of DVT (deep vein thrombosis) Acute blood loss anemia Resolved Problems: * No resolved hospital problems. * acute blood loss anemia: not requiring transfusion Hospital Course Admitted for elective left knee surgery after failing conservative tx. No acute surgical complications. Patient's post-op pain controlled at rest, increased with movement. Patient slow to mobilize withPT/OT and recommendations made for Swing Bed. Patient has h/o RTKA doing well and did go to Swing bed for short period after that surgery 6 yrs ago. The incision had some scant bleeding which has resolved. She denies CP, SOB, F/C or N/V. No calf pain on exam. Internal Med was consulted after surgery, please see notes for details. CM is working on arranging transfer to Swing Bed today. She will continue with post- op Total Knee PT protocol and transfer to outpt PT after d/c from . F/U with me in 2 weeks. Bone Health referral placed for eval of osteoporosis, that appt is in 2 weeks also. She will see her surgeon in 6 weeks for xrays. LabTests Pending at Discharge Follow-Up Scheduled Contact information for follow-up [facility] [address] [facility] [address] Instructions: Psychiatric hospital will contact you to set up a time for their services. Maura Tirado PA-C Specialty: PA - Orthopedic Surgery [facility] [address] [facility] [address] Instructions: Bone health appointment on Feb 05, at 11:00 AM. Rakesh Chavez PA Specialty: PA - Orthopedic Surgery [facility] [address] [facility] [address] Instructions: Incision check appointment on Feb 05, at 10:00 AM. Leonidas Aviles MD Specialty: Orthopedic Surgery [facility] [address] [facility] [address] Instructions: Follow up appointment on Mar 05, at 11:00 AM. Noah Taveras MD Specialty: Family Medicine Relationship: PCP - General PCP - Attributed Provider [place] [address] [facility] [address] Instructions: Post hospital follow up appointment on Jan 31, at 10:15 AM. Preliminary Discharge Medications This list of medications is preliminary and tentative. Please see the After Visit Summary for the final and accurate medication list. Discharge Medication List START taking these medications START: apixaban 2.5 MG tablet Commonly known as: ELIQUIS Dose: 2.5 mg Take 1 tablet (2.5 mg) by mouth 2 times a day Indications: Prophylaxis of Deep Vein Thrombosis in Orthopedic Surgery START: oxyCODONE 5 mg tablet (immediate release) Commonly known as: OXY-IR Dose: 5-10 mg Take 1-2 tablets (5-10 mg) by mouth every 4 to 6 hours as needed for moderate pain or severe pain START: senna-docusate sodium 8.6-50 MG tablet Commonly known as: SENOKOT-S;PERICOLACE Dose: 1 tablet Take 1 tablet by mouth 2 times a day For constipation CONTINUE taking these medications which have CHANGED CONTINUE: acetaminophen 500 mg tablet Commonly known as: TYLENOL Dose: 1000 mg Take 2 tablets (1,000 mg) by mouth Every 8 hours What changed: - when to take this - reasons to take this CONTINUE: omeprazole 20 mg capsule Commonly known as: priLOSEC Dose: 20 mg Take 1 capsule (20 mg) by mouth 1 time a day in the morning What changed: when to take this CONTINUE taking these medications which have NOT CHANGED CONTINUE: ALPRAzolam 1 mg tablet Commonly known as: XANAX TAKE 1 TABLET 3 TIMES A DAY NEEDED FOR ANXIETY GENERIC FOR XANAX CONTINUE: amLODIPine 5 mg tablet Commonly known as: NORVASC Dose: 5 mg Take 5 mg by mouth 1 time per day CONTINUE: * buPROPion 300 mg tablet (24 hr) Commonly known as: WELLBUTRIN XL TAKE 1 TABLET DAILY BY MOUTH (ALONG WITH 150 MG) GENERIC WELLBUTRIN XL CONTINUE: * buPROPion 150 mg tablet (24 hr) Commonly known as: WELLBUTRIN XL TAKE 1 TABLET DAILY (ALONG WITH 300MG) GENERIC WELLBUTRIN XL CONTINUE: busPIRone 15 mg tablet Commonly known as: BUSPAR Dose: 7.5 mg Take 0.5 tablets (7.5 mg) by mouth 2 times a day CONTINUE: CALCIUM + D3 600 mg-800 unit tablet Generic drug: calcium carbonate-vitamin D Dose: 2 tablet Take 2 tablets by mouth 1 time a day with breakfast CONTINUE: citalopram 40 mg tablet Commonly known as: celeXA TAKE 1 TABLET EVERY DAY CONTINUE: cycloSPORINE 0.05 % ophthalmic emulsion Commonly known as: RESTASIS Dose: [address] 1 drop into both eyes 2 times a day CONTINUE: levothyroxine 112 mcg tablet Dose: 112 mcg Take 1 tablet (112 mcg) by mouth 1 time per day CONTINUE: OCUVITE ADULT 50+ PO Dose: 1 capsule Take 1 capsule by mouth 1 time per day CONTINUE: propranolol 60 mg extended release capsule Commonly known as: INDERAL LA Dose: 180 mg Take 180 mg by mouth every night at bedtime * Notice: This list has 2 medication(s) that are the same as other medications prescribed for you.Read the directions carefully, and ask your doctor or other care provider to review them with you. STOP taking these medications STOP: acetaminophen-codeine #3 300-30 mg tablet Commonly known as: TYLENOL #3 Where to Get Your Medications These medications were sent to [facility] [address] [facility] [address] [address] [facility] [address] [facility] [address] oxyCODONE 5 mg tablet (immediate release) These medications were sent to [facility] Mail Delivery [facility] [address] [facility] [address] [address] [facility], [facility] [address] acetaminophen 500 mg tablet apixaban 2.5 MG tablet senna-docusate sodium 8.6-50 MG tablet Physical Exam Procedures Performed and Findings All procedures during admission Procedure(s): LEFT TOTAL KNEE ARTHROPLASTY Consultations Obtained SPIRITUAL CARE REFERRAL INTERNAL MEDICINE CONSULT CASE MANAGEMENT CONSULT BONE HEALTH REFERRAL [facility]ALTH REFERRAL Discharge Disposition ADULT Discharge Planning: Home (1, 2) Instructions for after discharge Contact your doctor if you develop a temperature greater than 101 degrees Contact your doctor if you experience increased pain, numbness, or tingling Contact your doctor if you have any questions in the first week Contact your doctor if you notice any drainage from your incision after 48 hours Contact your doctor if you notice any redness or swelling around your incision Do not begin any exercise program until you receive approval from your doctor. Walking is a safe exercise Do not operate equipment such as power tools, mowers, snow blowers ELEVATE EXTREMITY Elevate affected extremity above heart 4-5 times daily and as needed for swelling. ICE TO AFFECTED AREA Ice to affected area: polar care or cold packs 4-5 times daily and as needed for swelling and pain. Alternate 20 minutes on and 20 minutes off. Assess skin every 2 hrs. Do not apply directly on skin. If you have questions or concerns, please call your orthopedic surgeon at the clinic MAY NOT RETURN TO WORK UNTIL AFTER FOLLOW-UP APPOINTMENT MAY SHOWER - LEAVE INCISION OPEN TO AIR, MAY GET WET IF NO DRAINAGE. NO DRESSING REQUIRED: LEAVE INCISION OPEN TO AIR NO TUB BATH UNTIL DIRECTED NO USE OF ALCOHOL OR NON PRESCRIPTION DRUGS No driving No Driving until follow up with your health care provider. Please call 911 and seek immediate emergency care if you experience any chest pain or shortness of breath or if you are coughing up blood Resume home diet ALISON STOCKING ON EVERY DAY 1) May take stocking off at night 2) Wear stockings until follow-up appointment Walk frequently and gradually increase the distance you are walking Walk with assistive device Weight bearing status - as tolerated Less than 30 mins was spent in discharge planning today. INT MED has completed D /C meds. in this encounter Progress Notes Rakesh Chavez PA - 01/23/2018 2:22 PM CDTFormatting of this note may be different from the original. Orthopedic Daily Progress note: S: 2 Days Post-Op, Procedure(s): LEFT TOTAL KNEE ARTHROPLASTY O: A/O, Pain controlled, Incision C/D/I, Denies CP, SOB, F/C, N/V Positive DF, PF and EHL function, Sensation: intact to light touch in foot Quite slow post-op progress, therapy and nursing staff recommending SNF Current Vital Signs Temp: 98 F (36.7 C) BP: 142/66 Pulse: 65 O2 Device: Room Air O2 Flow Rate (L/min): 2 l/min Resp: 16 Pain Ratin (out of 10) Weight: 75.6 kg (166 lb 10.7 oz) SpO2: 95 % Pain Ratin Pain Location: Knee Specify: Left Pain character: Aches Intake/Output Summary (Last 24 hours) at 01/23/18 1422 Last data filed at 01/23/18 1305 Gross per 24 hour Intake 100 ml Output 2275 ml Net -2175 ml Lab Results Component Value Date HEMOGLOBIN 11.1 (L) 01/22/2018 Lab Results Component Value Date NA 139 01/23/2018 Lab Results Component Value Date INR 1.0 (L) 06/26/2013 PT 10.5 06/26/2013 Lab Results Component Value Date BUN 11 01/23/2018 Lab Results Component Value Date CREATSERUM 0.78 01/23/2018 Assessment/Plan: 1. 2 Days Post-Op, Procedure(s): 2. LEFT TOTAL KNEE ARTHROPLASTY 3. Acute blood loss anemia: stable 4. PT/OT: Out of bed, weight bearing status: WBAT Left lower 5. DVT prophylaxis: Eliquis 6. Disposition/Planning: PT/OT as tolerated. Discussed SNF with patient, CM following. Saturday D/C. AMBERLY Browning, Helen Montelongo, ERGONOMICS TECHNICIAN-WIRER MAINTENANCE - 01/23/2018 11:48 AM CDTFormatting of this note may be different from the original. DAILY PROGRESS NOTE Soraida Claros is a 72yr old female admitted on 01/21/2018 7:41 AM. Impression / Plan Status post total left knee replacement Pain mgmt per ortho- started on MSContin and prn Oxy Bowel regimen- Senokot and Miralax OT and PT following DVT prophylaxis- per ortho Eliquis BID for 12 days, has history of previous DVT Acute blood loss anemia- expected, no acute bleeding, repeat hgb in am Hypothyroidism- continue Levothyroxine Depressive disorder/ anxiety- continue Wellbutrin, Celexa and Buspar Essential hypertension- controlled, continue Amlodipine and Inderal LA GERD. Continue omeprazole Plan: slow progress with therapies, recommending TCU prior to going home independently, case mgmt consulted Interval History The history is provided by the patient and medical records. post op day 2- Surgical pain adequately controlled, denies nausea or SOB, Wanting to go home but was slow moving with PT, they have concerns about her going home, case mgmt to consult Review of Systems Review of Systems Constitutional: Negative. Respiratory: Negative for cough and shortness of breath. Cardiovascular: Negative for chest pain. Gastrointestinal: Negative for abdominal pain. Musculoskeletal: Positive for arthralgias. Neurological: Negative. Negative for dizziness and headaches. Physical Exam Vital Signs: Temp: 98 F (36.7 C) | BP: 111/55 | Pulse: 62 | Resp: 16 | Pain Ratin (out of 10) | Weight: 75.6 kg (166 lb 10.7 oz) | O2 Device: Room Air O2 Flow Rate (L/min): 2 l/min | SpO2: 97 % Maximum Temperatures (last 24 hours) Temperature Maximum Max Temp 98 F (36.7 C) Intake and Output: 01/22 0700 - 01/23 0659 In: 700 [Oral:700] Out: 2000 [Urine:2000] Physical Exam Neck: Normal range of motion. Cardiovascular: Normal rate, regular rhythm, normal heart sounds and intact distal pulses. Pulmonary/Chest: Effort normal and breath sounds normal. No respiratory distress. She has no wheezes. Abdominal: Soft. Bowel sounds are normal. She exhibits no distension. There is no tenderness. Musculoskeletal: She exhibits no edema. Neurological: She is alert. Skin: Skin is warm and dry. Nursing note and vitals reviewed. Labs Labs (Last day) 01/23/186[address] - 01/23/[address] CHEMISTRY 01/23/18622 CHEMISTRY Glucose 70-100 (mg/dL) 102 Sodium 135-145 (meq/L) 139 Potassium 3.5-5.3 (meq/L) 3.9 Chloride 99-110 (meq/L) 104 CO2 20-29 (meq/L) 28 Anion Gap with K 6-20 (meq/L) 11 BUN 6-22 (mg/dL) 11 Creatinine 0.60-1.10 (mg/dL) 0.78 BUN/Creatinine Ratio 10.0-25.0 14.1 Calcium 8.5-10.5 (mg/dL) 9.2 eGFR >=60 (mL/min/1.73m2) 88 eGFR Non- >=60 (mL/min/1.73m2) 72 01/23/18622 - 01/23/18622 OTHER 01/23/18622 OTHER Age (Years) 72 Medical Decision making MDM Reviewed: previous chart, nursing note and vitals Reviewed previous: labs Guillermina Borrero APRN-[employer]NCE - 01/22/2018 12:58 PM CDTFormatting of this note may be different from the original. DAILY PROGRESS NOTE Soraida Claros is a 72yr old female admitted on 01/21/2018 7:41 AM. Impression / Plan Plan: 1. Hypertension - stable. Continue propranolol, norvasc with parameters 2. Hx of dvt. Recommend full course of dvt prophylaxis, agree with ana 3. S/p left total knee arthroplasty - managed by ortho - scheduled tylenol with prn oxy for pain - home with home health when passes PT, likely , orders done 4. Hypothyroidism. Continue levothyroxine 5. GERD. Continue omeprazole 6. Depression/anxiety. Continue celexa, wellbutrin, buspar Interval History HPI Comments: POD 1. Reports good pain control. No overnight events. Review of Systems Review of Systems Respiratory: Negative for cough and shortness of breath. Cardiovascular: Negative for chest pain. Gastrointestinal: Negative for abdominal pain. Musculoskeletal: Positive for arthralgias. Neurological: Negative for dizziness and headaches. Physical Exam Vital Signs: Temp: 97.7 F (36.5 C) | BP: 145/76 | Pulse: 65 | Resp: 18 | Pain Ratin (out of 10) | Weight: 75.6 kg (166 lb 10.7 oz) | O2 Device: Room Air O2 Flow Rate (L/min): 2 l/min | SpO2: 96 % Maximum Temperatures (last 24 hours) Temperature Maximum Max Temp 98.3 F (36.8 C) Intake and Output: 01/21 0700 - 01/22 0659 In: 3225 [Oral:1350] Out: 1500 [Urine:1500] Physical Exam Cardiovascular: Normal rate, regular rhythm, normal heart sounds and intact distal pulses. Pulmonary/Chest: Effort normal and breath sounds normal. No respiratory distress. She has no wheezes. Abdominal: Soft. Bowel sounds are normal. She exhibits no distension. There is no tenderness. Neurological: She is alert. Skin: Skin is warm and dry. Nursing note and vitals reviewed. Labs Labs (Last day) 01/22/18645 - 01/22/18645 CBC 01/22/18645 CBC Hemoglobin 11.5-15.8 (g/dL) 11.1 01/22/18 0646 - 01/22/18645 CHEMISTRY 01/22/18645 CHEMISTRY Glucose 70-100 (mg/dL) 121 Sodium 135-145 (meq/L) 136 Potassium 3.5-5.3 (meq/L) 3.4 Chloride 99-110 (meq/L) 104 CO2 20-29 (meq/L) 24 Anion Gap with K 6-20 (meq/L) 11 BUN 6-22 (mg/dL) 9 Creatinine 0.60-1.10 (mg/dL) 0.69 BUN/Creatinine Ratio 10.0-25.0 13.0 Calcium 8.5-10.5 (mg/dL) 8.2 eGFR >=60 (mL/min/1.73m2) >90 eGFR Non- >=60 (mL/min/1.73m2) 83 01/22/18 0646 - 01/22/18 0646 OTHER 01/22/18 0646 OTHER Age (Years) 72 Medical Decision making MDM Reviewed: nursing note and vitals Interpretation: Adela Brennan [facility] - 01/22/2018 10:22 AM CDTAnticoagulation Education per Pharmacy Ms. Claros educated on apixaban. Patient provided verbal and written education on indication; potential risks and benefits of treatment, including increased risk of bleeding; importance of compliance in treatment and monitoring; signs/symptoms of bleeding/clotting; when to seek medical attention; potential for drug-drug, drug-disease, and drug- diet interactions. Specific follow up monitoring plan delivered to patient. Patient verbalized understanding of education and all questions. answered. Thank you very much. Adela Mcclendon, [facility] Rakesh Chavez PA - 01/22/2018 7:22 AM CDTFormatting of this note may be different from the original. Orthopedic Daily Progress note: S: 1 Day Post-Op, Procedure(s): LEFT TOTAL KNEE ARTHROPLASTY O: A/O, Pain increased over night, getting a little better this morning, Incision C/D/I, Denies CP,SOB, F/C, N/V Positive DF, PF and EHL function, Sensation: intact to light touch in foot Current Vital Signs Temp: 98 F (36.7 C) BP: 153/76 Pulse: 68 O2 Device: Room Air O2 Flow Rate (L/min): 2 l/min Resp: 18 Pain Ratin (out of 10) Weight: 75.6 kg (166 lb 10.7 oz) SpO2: 99 % Pain Ratin Pain Location: Knee Specify: Left Pain character: Aches;Sharp Intake/Output Summary (Last 24 hours) at 01/22/18 0722 Last data filed at 01/22/18 0645 Gross per 24 hour Intake 3225 ml Output 1500 ml Net 1725 ml Lab Results Component Value Date HEMOGLOBIN 13.8 01/21/2018 Lab Results Component Value Date NA 136 01/22/2018 Lab Results Component Value Date INR 1.0 (L) 06/26/2013 PT 10.5 06/26/2013 Lab Results Component Value Date BUN 9 01/22/2018 Lab Results Component Value Date CREATSERUM 0.69 01/22/2018 Assessment/Plan: 1. 1 Day Post-Op, Procedure(s): 2. LEFT TOTAL KNEE ARTHROPLASTY 3. Post op anemia: stable 4. Post-op pain: will add MS Contin BID 5. PT/OT: Out of bed, weight bearing status: WBAT Left lower 6. DVT prophylaxis: Eliuqis 7. Disposition/Planning: PT/OT as tolerated. Possibly home later today if pain controlled and passestherapies. INT MED and CM following. AMBERLY Browning, [place], PHARM D - 01/21/2018 8:41 AM CDTFormatting of this note may be different from the original. 01/21/2018 08:41 - Patient was seen by pharmacy med reconciliation team. HOME MEDICATIONS have been reconciled and updated to match the patient's home usage. Meds taken today: None Removed from med list: Amlodipine 2.5 mg, Esomeprazole, and Macrobid Added to med list: Amlodipine 5 mg, Calcium/Vitamin D, Ocuvite, and Propranolol ER Changes to med list: Patient takes Omeprazole at bedtime instead of in the morning Prior to Admission Medications Prescriptions Last Dose Informant Patient Reported? Taking? ALPRAzolam (XANAX) 1 mg tablet Past Week at Unknown time Self No Yes Sig: TAKE 1 TABLET 3 TIMES A DAY NEEDED FOR ANXIETY GENERIC FOR XANAX Multiple Vitamins-Minerals (OCUVITE ADULT 50+ PO) 01/19/2018 at AM Self Yes Yes Sig: Take 1 capsule by mouth 1 time per day acetaminophen (TYLENOL) 500 mg tablet 01/19/2018 at Unknown time Self Yes Yes Sig: Take 1,000 mg by mouth every 4 to 6 hours as needed for mild pain acetaminophen-codeine #3 (TYLENOL #3) 300-30 mg tablet Past month at Unknown time Self No Yes Sig: TAKE 1-2 TABLETS BY MOUTH 3 TIMES A DAY NEEDED FOR PAIN amLODIPine (NORVASC) 5 mg tablet 01/20/2018 at AM Self Yes Yes Sig: Take 5 mg by mouth 1 time per day buPROPion (WELLBUTRIN XL) 150 mg tablet (24 hr) 01/20/2018 at AM Self No Yes Sig: TAKE 1 TABLET DAILY (ALONG WITH 300MG) GENERIC WELLBUTRIN XL buPROPion (WELLBUTRIN XL) 300 mg tablet (24 hr) 01/20/2018 at AM Self No Yes Sig: TAKE 1 TABLET DAILY BY MOUTH (ALONG WITH 150 MG) GENERIC WELLBUTRIN XL busPIRone (BUSPAR) 15 mg tablet 01/20/2018 at AM Self No Yes Sig: Take 0.5 tablets (7.5 mg) by mouth 2 times a day calcium carbonate-vitamin D (CALCIUM + D3) 600 mg-800 unit tablet 01/20/2018 at AM Self Yes Yes Sig: Take 2 tablets by mouth 1 time a day with breakfast citalopram (CELEXA) 40 mg tablet 01/20/2018 at AM Self No Yes Sig: TAKE 1 TABLET EVERY DAY cycloSPORINE (RESTASIS) 0.05 % ophthalmic emulsion 01/20/2018 at AM Self No Yes Sig: Place 1 drop into both eyes 2 times a day levothyroxine 112 mcg tablet 01/20/2018 at AM Self No Yes Sig: Take 1 tablet (112 mcg) by mouth 1 time per day omeprazole (PRILOSEC) 20 mg capsule 01/20/2018 at HS Self No Yes Sig: Take 1 capsule (20 mg) by mouth 1 time a day in the morning Patient taking differently: Take 20 mg by mouth every night at bedtime propranolol (INDERAL LA) 60 mg extended release capsule 01/19/2018 at HS Self Yes Yes Sig: Take 180 mg by mouth every night at bedtime Facility-Administered Medications: None [place] Franco, PHARM D. in this encounter Plan of Treatment Date Type Specialty Care Team Description 01/31/2018 Office Visit Family [facility] Noah Taveras MD [address] [place] [address] 02/03/2018 Office Visit Urology Adria Zimmerman MD [address] [place], [place] [id number] 02/05/2018 Office Visit Orthopedics Rakesh Chavez PA [address] [place] [address] [phone] 02/05/2018 Office Visit Orthopedics Maura Tirado PA-C [address] [place] [address] [phone] 02/14/2018 Appointment Radiology 02/18/2018 Office Visit Urology Adria Zimmerman MD [address] [place], [place] [phone] 02/20/2018 Office Visit Internal Medicine 03/05/2018 Office Visit Orthopedics Leonidas Aviles MD [address] [place] [address] [phone] 06/26/2018 Office Visit Endocrinology Boogie Stauffer MD [address] [place], [place] [phone] Health Maintenance Due Date Last Done Comments Zoster Vaccine (2 of 3 - 02/05/2018 01/18/2015 Postponed from Mixed Series (ZVL first) - 03/20/2015 (Insurance / [employer]) Mammogram 12/27/2018 12/27/2017, 09/21/2016, 04/22/2015, Additional history exists Colorectal Cancer Screening 11/24/2019 11/23/2009 (Previously completed) Diabetes Screening 01/23/2021 01/23/2018, 01/22/2018, 01/17/2018, Additional history exists Lipid Screening 08/15/2021 08/15/2016, 05/20/2015 Tetanus Vaccine 04/20/2026 04/20/2016, 09/16/2006, 07/26/2006, Additional history exists DEXA/Heel Scan 09/09/2029 09/09/2014, 09/09/2014 (Previously completed), 04/29/2003 (Previously completed) Pneumococcal 65yr+ Low/Med Completed 04/20/2016, 10/06/2011 Risk Influenza Vaccine Completed 01/21/2018, 06/13/2017, 04/20/2016, Additional history exists as of this encounter Implants Implanted Type Area Training Technician Device Expiration Model / Identifier Date Serial / Lot Cmnt Bone Simplex P Stryk N 6191-1-010 Bx10/Ea - Sn/A Ortho Other Right: VIVIANA 01/09/2014 6191-1-001 / Implanted: Qty: 1 on 03/11/2012 by Leonidas Aviles MD KNEE N/A / [id number] Knee Tib Base Zm Sz 2 Rt N Ea - Sn/A Total Jt Right: JUMA 02/09/2021 / Implanted: Qty: 1 on 03/11/2012 by Leonidas Aviles MD Knee KNEE N/A / [id number] Knee Flex Sys Bullet Swaging Machine Adjuster Zm Rt Sz1 N 14 Ea - Sn/A Total Jt Right: JUMA 05/11/202104-2825-011-02 / Implanted: Qty: 1 on 03/11/2012 by Leonidas Aviles MD Knee KNEE N/A / [id number] Knee Articu Ulzm Rt Sz1-2 11mm N 28021- Ea - Sn/A Total Jt Right: JUMA 01/09/201740-1032-075- / Implanted: Qty: 1 on 03/11/2012 by Leonidas Aviles MD Knee KNEE N/A / [id number] Knee Flex Sys Sz1 N 76-9913-877- Ea - Sn/A Total Jt Right: JUMA 11/095420-008- / Implanted: Qty: 1 on 03/11/2012 by Leonidas Aviles MD Knee KNEE N/A / [id number] Stnt Uretrl Inlay 7.0fr 24cm N [id number] Ea - [id number] Urology Right: BARD [id number] / Implanted: Qty: 1 on 06/26/2013 by Adria Zimmerman MD KIDNEY [id number] / [id number] Stnt Inlay Wo Wire 7fr 24cm N [id number] Ea - [id number] Urology BARD 2020 [id number] / Implanted: Qty: 1 on 09/12/2016 by Adria Zimmerman MD / [id number] Knee Psn Jrzclqbldiy09rs0-95ev N 32-3999-047-10 Ea1 - Sn/A Left: KNEE JUMA [id number] / Implanted: Qty: 1 on 01/21/2018 by Leonidas Aviles MD N/A / [id number] Knee Psn Ptla All Pe 32mm N [id number] Ea1 - Sn/A Left: KNEE JUMA 12/10/202557-1769-279-32 / Implanted: Qty: 1 on 01/21/2018 by Leonidas Aviles MD N/A / [id number] Knee Psn Fem Crcmnt Std Lftsz5 N 79-8704-500-01 Ea - Sn/A Left: KNEE JUMA 10/11/2027 [id number] / Implanted: Qty: 1 on 01/21/2018 by Leonidas Aviles MD N/A / [id number] Cmnt Bone Simplex P Stry 40gm N 6191-1-001 Ea - Sn/A Left: KNEE VIVIANA 10/11/2019 6191-1-001 / Implanted: Qty: 1 on 01/21/2018 by Leonidas Aviles MD N/A / [id number] Knee Psn Tib Stem 5d Lft Radha N [id number] Ea1 - [id number] Left: KNEE JUMA 09/10/2027 [id number] / Implanted: Qty: 1 on 01/21/2018 by Leonidas Aviles MD / [id number] as of this encounter Procedures Procedure Name Priority Date/Time Associated Diagnosis Comments HEMOGLOBIN Routine 01/24/2018 6:21 Results for this AM CDT procedure are in the results section. BASIC METABOLIC Routine 01/23/2018 6:23 Results for this PANEL AM CDT procedure are in the results section. COLLECT AND HOLD Routine 01/23/2018 6:20 Results for this LAVENDER (EDTA) TOP AM CDT procedure are in TUBE the results section. HEMOGLOBIN Routine 01/22/2018 6:46 Results for this AM CDT procedure are in the results section. BASIC METABOLIC Routine 01/22/2018 6:46 Results for this PANEL AM CDT procedure are in the results section. LEFT TOTAL KNEE 01/21/2018 10:50 Osteoarthritis of left ARTHROPLASTY AM CDT knee Special Needs *P* HEMOGLOBIN STAT 01/21/2018 8:29 AM CDT in this encounter Results HEMOGLOBIN (01/24/2018 6:21 AM) Component Value Ref Range Hemoglobin 9.5 (L) 11.5 - 15.8 g/dL Specimen Performing Laboratory Blood [facility] [address] [place] [address] BASIC METABOLIC PANEL (01/23/2018 6:23 AM) Component Value Ref Range Glucose 102 (H) 70 - 100 mg/dL BUN 11 6 - 22 mg/dL Creatinine 0.78 0.60 - 1.10 mg/dL BUN/Creatinine Ratio 14.1 10.0 - 25.0 Sodium 139 135 - 145 meq/L Potassium 3.9 3.5 - 5.3 meq/L Chloride 104 99 - 110 meq/L CO2 28 20 - 29 meq/L Anion Gap with K 11 6 - 20 meq/L Calcium 9.2 8.5 - 10.5 mg/dL Age 72 Years eGFR Non- 72 >=60 mL/min/1.73m2 eGFR 88 >=60 mL/min/1.73m2 Specimen Performing Laboratory Blood [facility] [address] [place] [phone] COLLECT AND HOLD LAVENDER (EDTA) TOP TUBE (01/23/2018 6:20 AM) Component Value Ref Range Collect and Hold Specimen Status Comment: RECEIVED Specimen Performing Laboratory Blood [facility] [address] [place] [address] BASIC METABOLIC PANEL (01/22/2018 6:46 AM) Component Value Ref Range Glucose 121 (H) 70 - 100 mg/dL BUN 9 6 - 22 mg/dL Creatinine 0.69 0.60 - 1.10 mg/dL BUN/Creatinine Ratio 13.0 10.0 - 25.0 Sodium 136 135 - 145 meq/L Potassium 3.4 (L) 3.5 - 5.3 meq/L Chloride 104 99 - 110 meq/L CO2 24 20 - 29 meq/L Anion Gap with K 11 6 - 20 meq/L Calcium 8.2 (L) 8.5 - 10.5 mg/dL Age 72 Years eGFR Non- 83 >=60 mL/min/1.73m2 eGFR >90 >=60 mL/min/1.73m2 Specimen Performing Laboratory Blood [facility] [address] [place], [place] [phone] HEMOGLOBIN (01/22/2018 6:46 AM) Component Value Ref Range Hemoglobin 11.1 (L) 11.5 - 15.8 g/dL Specimen Performing Laboratory Blood [facility] [address] [place] [address] XRAY KNEE 1-2V - LT (01/21/2018 1:26 PM) Specimen Performing Laboratory PS360 Narrative Patient Name: SORAIDA CLAROS Date of :1945 Procedure: XRAY KNEE 1-2 VIEWS LT Date of Service: 01/21/2018 EXAM: XRAY KNEE 1-2 VIEWS LT INDICATION: s/p LTKA COMPARISON(S): 12/27/2017 FINDINGS/IMPRESSION: Postoperative change of left knee arthroplasty and patellar resurfacing. No perihardware fracture or malalignment. No foreign body. Finalized by: Elias Mccarthy DO on 01/21/2018 1:34 PM Patient/Procedure Information: [facility] MRN/MARTY: [id number] Order Number: [id number] Accession Number: [id number] Ordering Provider: RAKESH CHAVEZ Authorizing Provider: RAKESH CHAVEZ Procedure Note Interface, Radiantres - 01/21/2018 1:36 PM CDT Patient Name: SORAIDA CLAROS Date of : 1945 Procedure: XRAY KNEE 1-2 VIEWS LT Date of Service: 01/21/2018 EXAM: XRAY KNEE 1-2 VIEWS LT INDICATION: s/p LTKA COMPARISON(S): 12/27/2017 FINDINGS/IMPRESSION: Postoperative change of left knee arthroplasty and patellar resurfacing. No perihardware fracture or malalignment. No foreign body. Finalized by: Elias Mccarthy DO on 01/21/2018 1:34 PM Patient/Procedure Information: [facility] MRN/MARTY: [id number] Order Number: [id number] Accession Number: [id number] Ordering Provider: RAKESH CHAVEZ Authorizing Provider: RAKESH CHAVEZ TISSUE EXAM (01/21/2018 11:48 AM) Component Value Ref Range FINAL DIAGNOSIS Bone and soft tissue, left knee, arthroplasty: - Bone fragments with changes grossly consistent with degenerative joint disease, and soft tissue fragments without gross pathological abnormality ( gross examination only; see gross description). AJW:delroy GROSS DESCRIPTION Received in formalin labeled "left knee bone " is a 15.4 x 14.2 x 1.4 cm aggregate of multiple yellow-nicole bone and soft tissue fragments, including the tibial plateau and femoral condyles.The patell a is present.The articular surfaces show areas of eburnation, osteophyte formation and focal pitting.No sections submitted.Gross examination only. MS MICROSCOPIC DESCRIPTION CASE REPORT Surgical Pathology Report Case: [id number] Authorizing Provider:Leonidas Aviles MD Collected: 01/21/2018 1148 Ordering Location: [facility] Received: 01/21/2018 1502 Pathologist: Elham Meza MD Specimen:Knee, Left knee bone EMBEDDED IMAGES Specimen Performing Laboratory Bone - Knee [facility] [address] [place] [address] HEMOGLOBIN (01/21/2018 8:29 AM) Component Value Ref Range Hemoglobin 13.8 11.5 - 15.8 g/dL Specimen Performing Laboratory Blood [facility] [address] [facility] [place] [address] in this encounter Visit Diagnoses Diagnosis Status post total left knee replacement - Primary Osteoarthritis of left knee Osteoarthrosis, unspecified whether generalized or localized, lower leg Mood disorder Unspecified episodic mood disorder Depression, unspecified depression type Anxiety state Anxiety state, unspecified Essential hypertension Unspecified essential hypertension Hypothyroidism Unspecified hypothyroidism History of DVT (deep vein thrombosis) Personal history of venous thrombosis and embolism Acute blood loss anemia Acute posthemorrhagic anemia in this encounter Administered Medications Medication Order MAR Action Action Date Dose Rate Site acetaminophen (TYLENOL) tablet Given 01/23/2018 16:41 CDT 1,000 mg 1,000 mg 1,000 mg, Oral, Three times a day, First dose on Sat01/21/18 at 1500, Until Discontinued, Post - Op, Total dose of acetaminophen from all acetaminophen containing products should not exceed 4 grams (4000 mg) per day. Given 01/23/2018 21:12 CDT 1,000 mg Given 01/24/2018 08:31 CDT 1,000 mg ALPRAzolam (XANAX) tablet 1 mg Given 01/22/2018 10:26 CDT 1 mg 1 mg, Oral, Every eight hours prn, Starting Sat01/21/18 at 1358, Until Discontinued, anxiety amLODIPine (NORVASC) tablet 5 mg Given 01/22/2018 08:39 CDT 5 mg 5 mg, Oral, DAILY, First dose on Sat01/22/18 at 0900, Until Discontinued, Hold if SBP <120 Given 01/23/2018 08:08 CDT 5 mg Given 01/24/2018 08:23 CDT 5 mg apixaban (ELIQUIS) tablet 2.5 mg Given 01/23/2018 08:09 CDT 2.5 mg 2.5 mg, Oral, Two times a day, 24 doses, First dose on Sat01/22/18 at 1130, Last dose on Sat02/02/18 at 2000, Post - Op, ++do not give early due to traumatic needle placement++ Given 01/23/2018 21:11 CDT 2.5 mg Given 01/24/2018 08:25 CDT 2.5 mg bisacodyl (DULCOLAX) enteric coated tablet 5 mg Given 01/23/2018 08:09 CDT 5 mg 5 mg, Oral, Two times a day prn, Starting Sat01/21/18 at 1356, Until Discontinued, constipation, Post - Op, SECOND choice or per patient preference buPROPion (WELLBUTRIN XL) tablet (24 hr) 150 mg Given 01/22/2018 08:40 CDT 150 mg 150 mg, Oral, Daily, First dose on Sat01/22/18 at 0900, Until Discontinued, Tablet should not be crushed or chewed. Given 01/23/2018 13:27 CDT 150 mg Given 01/24/2018 08:24 CDT 150 mg buPROPion (WELLBUTRIN XL) tablet (24 hr) 300 mg Given 01/22/2018 08:40 CDT 300 mg 300 mg, Oral, Daily, First dose on Sat01/22/18 at 0900, Until Discontinued, Tablet should not be crushed or chewed. Given 01/23/2018 08:08 CDT 300 mg Given 01/24/2018 08:25 CDT 300 mg busPIRone (BUSPAR) tablet 7.5 mg Given 01/23/2018 08:09 CDT 7.5 mg 7.5 mg, Oral, Two times a day, First dose on Sat01/21/18 at 2100, Until Discontinued Given 01/23/2018 21:11 CDT 7.5 mg Given 01/24/2018 08:25 CDT 7.5 mg calcium carbonate-vitamin D (OSCAL 500 + VIT Given 01/22/2018 08:41 CDT 1 tablet D) 500 mg-200 unit tablet 1 tablet 1 tablet, Oral, One time a day with breakfast, First dose on Sat01/22/18 at 0800, Until Discontinued, Formulary Substitute for calcium +d 600-800 while in hospital Given 01/23/2018 08:09 CDT 1 tablet Given 01/24/2018 08:23 CDT 1 tablet citalopram (celeXA) tablet 40 mg Given 01/22/2018 08:42 CDT 40 mg 40 mg, Oral, DAILY, First dose on Sat01/22/18 at 0900, Until Discontinued Given 01/23/2018 08:09 CDT 40 mg Given 01/24/2018 08:24 CDT 40 mg cycloSPORINE (RESTASIS) 0.05 % ophthalmic Given 01/23/2018 08:17 CDT 1 drop emulsion 1 drop 1 drop, Both eyes, Two times a day, First dose on Sat01/21/18 at 2100, Until Discontinued Given 01/23/2018 21:13 CDT 1 drop Given 01/24/2018 08:27 CDT 1 drop HYDROmorphone (DILAUDID) injection solution (conc: Given 01/22/2018 04:37 CDT 1 mg 1 mg/mL) 1 mg 1 mg, IV, Every one hour prn, Starting Sat01/21/18 at 1358, Until Discontinued, breakthrough pain, 1 mL levothyroxine tablet 112 mcg Given 01/22/2018 06:58 CDT 112 mcg 112 mcg, Oral, DAILY, First dose on Sat01/22/18 at 0700, Until Discontinued Given 01/23/2018 06:05 CDT 112 mcg Given 01/24/2018 05:46 CDT 112 mcg morphine sulfate (MS CONTIN) SR tablet (12 hr) 15 Given 01/23/2018 08:09 CDT 15 mg mg 15 mg, Oral, Two times a day, First dose on Sat01/22/18 at 0900, Until Discontinued, Tablet should be swallowed whole and not be divided, crushed or chewed. Given 01/23/2018 21:12 CDT 15 mg Given 01/24/2018 08:31 CDT 15 mg multivitamin therapeutic with minerals Given 01/22/2018 08:42 CDT 1 tablet (THERA-M) tablet 1 tablet 1 tablet, Oral, Daily, First dose on Sat01/22/18 at 0900, Until Discontinued Given 01/23/2018 08:09 CDT 1 tablet Given 01/24/2018 08:24 CDT 1 tablet omeprazole (priLOSEC) capsule 20 mg Given 01/21/2018 21:11 CDT 20 mg 20 mg, Oral, Bedtime, First dose on Sat01/21/18 at 2100, Until Discontinued, Swallow cap whole. Do not crush, chew or open. Given 01/22/2018 21:19 CDT 20 mg Given 01/23/2018 21:12 CDT 20 mg oxyCODONE (OXY-IR) tablet 5-10 mg Given 01/22/2018 13:02 CDT 10 mg 5-10 mg, Oral, Every four hours prn, Starting Sat01/21/18 at 1356, Until Discontinued, moderate pain, severe pain, Post - Op, For patients with moderate pain, pain rating of 4-6, give Oxycodone 5mg PO every 4 hours PRN. For patients with severe pain, pain rating of 7-10, give Oxycodone 10mg PO every 4 hours PRN. Given 01/23/2018 06:15 CDT 5 mg Given 01/23/2018 13:27 CDT 5 mg polyethylene glycol (MIRALAX) packet 1 packet Given 01/22/2018 08:37 CDT 1 packet 1 packet, Oral, Daily, First dose on Sat01/22/18 at 0900, Until Discontinued, Post - Op, Hold if 2 loose stools occur in the last 24 hours. Given 01/23/2018 08:17 CDT 1 packet Given 01/24/2018 08:26 CDT 1 packet propranolol (INDERAL LA) extended release Given 01/21/2018 21:10 CDT 180 mg capsule 180 mg 180 mg, Oral, Bedtime, First dose on Sat01/21/18 at 2100, Until Discontinued, Swallow capsule whole. Do not crush, chew or open. Hold if SBP <100 or HR <55 Given 01/22/2018 21:19 CDT 180 mg Given 01/23/2018 21:11 CDT 180 mg senna-docusate sodium (SENOKOT-S;PERICOLACE) Given 01/23/2018 08:09 CDT 1 tablet tablet 1 tablet 1 tablet, Oral, Two times a day, First dose on Sat01/21/18 at 2100, Until Discontinued, Post - Op, Hold if 2 loose stools occur in the last 24 hours. Given 01/23/2018 21:12 CDT 1 tablet Given 01/24/2018 08:31 CDT 1 tablet sodium chloride 0.9% flush (adult) 10 mL Given 01/22/2018 21:19 CDT 10 mL 10 mL, IV, Two times a day and prn, First dose on Sat01/21/18 at 2100, Until Discontinued, 10 mL, Post - Op, Flush IV line as scheduled and as often as necessary before and after meds. Given 01/23/2018 08:12 CDT 10 mL Given 01/23/2018 21:13 CDT 10 mL Medication Order MAR Action Action Date Dose Rate Site acetaminophen (TYLENOL) tablet Given 01/21/2018 09:19 CDT 1,000 mg 1,000 mg 1,000 mg, Oral, Pre-op, 1 dose, Sat01/21/18 at 0800, Pre - Op, Total dose of acetaminophen from all acetaminophen containing products should not exceed 4 grams (4000 mg) per day. ceFAZolin (ANCEF) 2000 mg/20 mL sterile water Given 01/21/2018 21:08 CDT 2, 000 mg IV syringe 2,000 mg, IV, Every eight hours, 2 doses, First dose on Sat01/21/18 at 1900, Last dose on Sat01/22/18 at 0300, 20 mL, PACU - Continue Post-Op, Administer as IV push over 4 minutes. Given 01/22/2018 02:20 CDT 2,000 mg fentaNYL 100 mcg/2 mL preservative free Given 01/21/2018 10:30 CDT 100 mcg injection solution 25-100 mcg 25-100 mcg, IV, Every five minutes prn, 3 doses, Starting Sat01/21/18 at 0753, Until Sat01/21/18 at 1347, pain, 2 mL, Pre - Op, Fentanyl 25-100 mcg q 5 min prn over the next 2 hours to a MAX of 300 mcg as needed for analgesia during procedure gabapentin (NEURONTIN) capsule 600 mg Given 01/21/2018 09:19 CDT 600 mg 600 mg, Oral, Pre-op, 1 dose, Sat01/21/18 at 0800, Pre - Op, 1 dose prior to surgery influenza HIGH DOSE virus vaccine Given 01/21/2018 09:47 CDT 0.5 mL Left Deltoid IM split preservative free IM injection 0.5 mL 0.5 mL, Intramuscular, Now, 1 dose, Sat01/21/18 at 0910, 0.5 mL ketorolac (TORADOL) intravenous injection 15 mg Given 01/21/2018 09:19 CDT 15 mg 15 mg, IV, Pre-op, 1 dose, Sat01/21/18 at 0800, 1 mL, Pre - Op, 1 dose prior to surgery ketorolac (TORADOL) intravenous injection 15 mg Given 01/22/2018 18:05 CDT 15 mg 15 mg, IV, Every six hours, 2 doses, First dose on Sat01/22/18 at 1800, Last dose on Sat01/23/18 at 0000, 1 mL Given 01/23/2018 00:13 CDT 15 mg lactated ringers IV solution New Bag 01/21/2018 09:19 CDT 25 mL/hr IV, at 25 mL/hr, Continuous, Starting Sat01/21/18 at 0905, Until Sat01/21/18 at 1347, 1,000 mL, Pre - Op New Bag 01/21/2018 11:27 CDT lidocaine PF Given 01/21/2018 09:19 CDT 0.1 mL Intradermal for IV (XYLOCAINE-MPF) 1 % start preservative free injection solution 0.1-0.3 mL 0.1-0.3 mL, Intradermal, Pre-op, 1 dose, Sat01/21/18 at 0905, 2 mL, Pre - Op, IV start midazolam (VERSED) injection solution 0.25-2 mg Given 01/21/2018 10:30 CDT 2 mg 0.25-2 mg, IV, Every five minutes prn, 6 doses, Starting Sat01/21/18 at 0753, Until Sat01/21/18 at 1347, sedation, 2 mL, Pre - Op, Midazolam 0.25-2 mg q 5 min prn to a MAX of 5 mg as needed for sedation during procedure. sodium chloride 0.9% IV solution New Bag/Tubing 01/21/2018 14:06 CDT 100 mL/hr IV, at 100 mL/hr, Continuous, Starting Sat01/21/18 at 1405, Until Sat01/22/18 at 1035, 1,000 mL, Post - Op New Bag 01/22/2018 00:10 CDT 100 mL/hr in this encounter
== END 2018-01-27 12:40 | disposition home or self-care (01) | DRG 561 ==
LOC: FB.MS 12:55
PROVIDERS: ADMIT Family Medicine; ATTEND Family Medicine
DX: Z47.1 Aftercare following joint replacement surgery (principal); Z98.890 Other specified postprocedural states; Z96.653 Presence of artificial knee joint, bilateral; I10 Essential (primary) hypertension; E03.9 Hypothyroidism, unspecified; F39 Unspecified mood [affective] disorder; F41.8 Other specified anxiety disorders; Z79.01 Long term (current) use of anticoagulants; Z88.2 Allergy status to sulfonamides; Z87.442 Personal history of urinary calculi
CPT/HCPCS: 97165-GO; 97530-GO; 97535-GO; A9270-GY

== ENCOUNTER 2018-02-14 07:32 | Emergency (ER) | payer MEDICARE, OTHER ==
--- NOTE | 2018-02-14 08:31 | EDM.PDOC ---
ED HPI GENERAL MEDICAL PROBLEM - General Chief Complaint: Lower Extremity Injury/Pain Stated Complaint: LEFT LEG PAIN Time Seen by Provider: 02/14/18 08:10 Source of Information: Reports: Patient History Limitations: Reports: No Limitations - History of Present Illness INITIAL COMMENTS - FREE TEXT/NARRATIVE: This 72-year-old woman who lives with a significant other, has had hiatus hernia hx of increased calcium,GERD, previous cataract surgery, and recent 01/20/18 right total arthroplasty of her knee, lost her mother within a few days with the surgery, consequently has not gone to physical therapy more than once. Has now increasing pain in her left mid anterior femur with walking. The pain is at the mid femur- vastus intermedius muscle region. She also has history of anxiety, low back pain which was treated with an epidural 3 months ago and resolved, and is 7 para [id number]. She has no history of fal trauma fever swelling incisional pain or increased warmth. Onset: Today (This pleasant 72-year-old nonsmoker with history of hiatus hernia increase calcium GERD depression hyperthyroidism and who is on eloquence postoperative day 200 mg daily anxiety intermittent low back pain previous history epidural 3 months ago, 7 para [id number]) - Related Data Allergies Allergy/AdvReac Type Severity Reaction Status Date / Time Sulfa (Sulfonamide Allergy Rash Verified 02/14/18 08:05 Antibiotics) Home Meds: Home Meds buPROPion HCl [Wellbutrin Xl] 150 mg PO DAILY 10/04/14 [History] buPROPion HCl [Wellbutrin Xl] 300 mg PO DAILY 10/04/14 [History] busPIRone HCl [Buspirone HCl] 7.5 mg PO BID 10/04/14 [History] Calcium Carbonate/Vitamin D3 [Oyster Shell Calcium with Vitamin D] 2 tab PO WITHBREAKFAST 11/13/16 [History] Omeprazole 20 mg PO DAILY@0600 11/13/16 [History] amLODIPine [Norvasc] 5 mg PO DAILY 11/13/16 [History] ALPRAZolam [Xanax] 1 mg PO TID PRN 01/24/18 [History] Acetaminophen [Tylenol Extra Strength] 1,000 mg PO Q8H 01/24/18 [History] Citalopram Hydrobromide [Celexa] 40 mg PO DAILY 01/24/18 [History] Levothyroxine 112 mcg PO DAILY@0600 01/24/18 [History] Lutein/Minerals/Vit A,C & E [Ocuvite] 1 tab PO DAILY 01/24/18 [History] Propranolol HCl [Inderal LA] 180 mg PO BEDTIME 01/24/18 [History] Sennosides/Docusate Sodium [Senna-S] 1 tab PO BID 01/24/18 [History] cycloSPORINE [Restasis] 1 drop EYEBOTH BID 01/24/18 [History] oxyCODONE 5 - 10 mg PO Q4H PRN 01/24/18 [History] Apixaban [Eliquis] 2.5 mg PO BID #50 tablet 01/27/18 [Rx] Past Medical History HEENT History: Reports: Impaired Vision Cardiovascular History: Reports: Hypertension Gastrointestinal History: Reports: Other (See Below) Other Gastrointestinal History: occassional indegestion Genitourinary History: Reports: Urinary Incontinence 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: , Spontaneous Psychiatric History: Reports: Anxiety, Depression Endocrine/Metabolic History: Reports: Obesity/BMI 30+ - Infectious Disease History Infectious Disease History: Reports: Chicken Pox, Measles, Mumps - Past Surgical History HEENT Surgical History: Reports: Adenoidectomy, Cataract Surgery, Tonsillectomy Female Surgical History: Reports: Other (See Below) Other Female Surgeries/Procedures: KIDNEY SURGERY TO REMOVE STONE Musculoskeletal Surgical History: Reports: Knee Replacement, Other (See Below) Other Musculoskeletal Surgeries/Procedures:: back surgery, Lumbar Social & Family History - Caffeine Use Caffeine Use: Reports: Coffee - Living Situation & Occupation Living situation: Reports: Review of Systems - Review of Systems Review Of Systems: See Below Constitutional: Reports: No Symptoms Eyes: Reports: No Symptoms Ears: Reports: No Symptoms Nose: Reports: No Symptoms Mouth/Throat: Reports: No Symptoms Respiratory: Reports: No Symptoms Cardiovascular: Reports: No Symptoms GI/Abdominal: Reports: No Symptoms Genitourinary: Reports: No Symptoms Musculoskeletal: Reports: Other (Left knee. Pain increased over the past several weeks) Skin: Reports: No Symptoms Neurological: Reports: No Symptoms Psychiatric: Reports: No Symptoms, Depression ED EXAM, GENERAL - Physical Exam Exam: See Below Free Text/Narrative:: Pleasant slightly overweight woman in mild distress over her left knee Exam Limited By: No Limitations General Appearance: Alert Eye Exam: Bilateral Eye: Normal Inspection Ears: Normal External Exam Ear Exam: Bilateral Ear: Auricle Normal Nose: Normal Inspection Throat/Mouth: Normal Inspection, Normal Lips, Normal Teeth, Normal Oropharynx, Normal Voice Head: Atraumatic, Normocephalic Neck: Normal Inspection, Supple, Non-Tender Respiratory/Chest: No Respiratory Distress, Lungs Clear, Normal Breath Sounds, No Accessory Muscle Use, Chest Non-Tender Cardiovascular: Normal Peripheral Pulses, Regular Rate, Rhythm, No Edema, No Gallop, No JVD, No Murmur, No Rub Peripheral Pulses: 1+: Brachial (R), Radial (L), Dorsalis Pedis (L), Dorsalis Pedis (R) GI/Abdominal: Normal Bowel Sounds, Soft, Non-Tender, No Organomegaly, No Distention, No Abnormal Bruit, No Mass (Female) Exam: Deferred Rectal (Female) Exam: Deferred Back Exam: Normal Inspection Extremities: Normal Inspection, Other (Negative Homans sign no palpable tender this to the vascular structures left thigh or lower extremity. Dorsalis pedis intact. Mild swelling of left lower extremity compared to the right extremity which would be considered normal for postoperative TKA. No increased warmth or abnormality this suture line at the anterior knee. No joint line tenderness of the knee. No effusion.) Neurological: Normal Reflexes Psychiatric: Normal Affect, Normal Mood Skin Exam: Warm, Dry, Intact, Normal Color, No Rash Lymphatic: No Adenopathy ED TRAUMA EXTREMITY PROCEDURES - Additional/Other Procedure(s) Other (Free Text) Procedure(s): Ultrasound of the left leg was negative for DVT but there is a 3 x 1.6 cm hematoma in the left popliteal fossa. Course - Vital Signs Last Recorded V/S: Last Vital Signs Temp 36.7 C 02/14/18 07:32 Pulse 88 02/14/18 07:32 Resp 18 02/14/18 07:32 BP 144/85 H 02/14/18 07:32 Pulse Ox 98 02/14/18 07:32 - Orders/Labs/Meds Orders: Active Orders 24 hr Category Date Time Status VL Duplex Lwr Ext Veins Ltd Lt [US] Stat Exams 02/14/18 09:39 Taken Labs: Laboratory Tests 02/14/18 02/14/18 Range/Units 08:50 08:50 WBC 6.1 (4.5-12.0) X10-3/uL RBC 3.83 (3.23-5.20) x10(6)uL Hgb 12.0 (11.5-15.5) g/dL Hct 35.1 (30.0-51.3) % MCV 91.9 (80-96) fL MCH 31.3 (27.7-33.6) pg MCHC 34.0 (32.2-35.4) g/dL RDW 12.7 (11.5-15.5) % Plt Count 303 (125-369) X10(3)uL MPV 8.1 (7.4-10.4) fL Neut % (Auto) 69.7 (46-82) % Lymph % (Auto) 21.0 (13-37) % [place] % (Auto) 7.5 (4-12) % Eos % (Auto) 1 (1.0-5.0) % Baso % (Auto) 0 (0-2) % Neut # (Auto) 4.2 (1.6-8.3) # Lymph # (Auto) 1.3 (0.6-5.0) # [place] # (Auto) 0.5 (0.0-1.3) # Eos # (Auto) 0.1 (0.0-0.8) # Baso # (Auto) 0.0 (0.0-0.2) # D-Dimer, Quantitative 2.61 H (0.0-0.59) mg/LFEU Departure - Departure Time of Disposition: 11:45 (Patient's left thigh pain is probably secondary to not following through with her physical therapy post one month TKA because her mother's . She needs to really start her physical therapy. This thigh pain secondary to mild myalgia. She has an elevated d-dimer. The d-dimer is not related to a DVT as the ultrasound is negative. D-dimer could be related to the small popliteal fossa hematoma in the left postop TKA. She has trace swelling or lower extremity which is not unusual for TKA A. Patient is gradually increase her activity as tolerated. Reassured sent home use Tylenol and ibuprofen for pain.) Disposition: Home, Self-Care 01 Clinical Impression: Hematoma, Left thigh pain - Discharge Information Referrals: Noah Taveras MD [Primary Care Provider] - Forms: ED Department Discharge Additional Instructions: There is no deep venous thrombosis in your leg. You have an elevated d-dimer which sometimes suggests a coagulation abnormality. At this point there is no clear evidence for cause of this. The d-dimer elevation could be related to a minor complication of the left total knee arthroplasty formation of a small hematoma you have the back of your left knee (popliteal fossa). This is 1.6 x 3 cm size and thus may be part of the reason prior having increased activity related the discomfort with walking. Be sure to return to physical therapy and get re-enrolled in your rehabilitation program. Follow-up with as needed, otherwise in 1-2 weeks. - My Orders Last 24 Hours: My Active Orders 02/14/18 09:39 VL Duplex Lwr Ext Veins Ltd Lt [US] Stat - Assessment/Plan Last 24 Hours: My Active Orders 02/14/18 09:39 VL Duplex Lwr Ext Veins Ltd Lt [US] Stat
--- NOTE | 2018-02-14 15:07 | US ---
INDICATION: Left mid thigh pain, D-dimer elevated, postop total knee arthroplasty. DUPLEX ULTRASOUND, LEFT LOWER EXTREMITY VEINS: Utilizing 2-D real time, duplex Doppler spectral analysis and color flow imaging, examination of the left lower extremity veins revealed no evidence of deep venous thrombosis or obstruction. Compression views showed no abnormal lack of compression to suggest thrombosis. No evidence of incompetence of the valves was identified. Edema is noted in the lateral calf area interstitially. There is noted a 3.57 x 1.26 x 1.08 cm popliteal fossa hypoechoic structure likely representing a hematoma. IMPRESSION: 1. Duplex ultrasound, left lower extremity veins, shows no evidence of deep venous thrombosis or incompetence. 2. Probable hematoma at the popliteal fossa. Report was given in person to Dr. Montes at approximately 1155 hours on 09/2017. CHANDLER
[2018-02-14 17:55] VITALS: BP 158/82
== END 2018-02-14 12:15 | disposition home or self-care (01) ==
LOC: FB.ED 07:32
DX: S70.12XA Contusion of left thigh, initial encounter (principal); I10 Essential (primary) hypertension; F41.9 Anxiety disorder, unspecified; F32.9 Major depressive disorder, single episode, unspecified; E03.9 Hypothyroidism, unspecified; Z96.652 Presence of left artificial knee joint; Z96.651 Presence of right artificial knee joint; Z88.2 Allergy status to sulfonamides; Z79.899 Other long term (current) drug therapy; X58.XXXA Exposure to other specified factors, initial encounter
CPT/HCPCS: 36415; 85025; 85379; 93971-LT; 99283; 99284

== ENCOUNTER 2018-09-27 22:42 | Emergency (ER) | payer MEDICARE, OTHER ==
--- NOTE | 2018-09-27 23:00 | EDM.PDOC ---
ED HPI GENERAL MEDICAL PROBLEM - General Stated Complaint: hip pain Time Seen by Provider: 09/27/18 23:00 - History of Present Illness INITIAL COMMENTS - FREE TEXT/NARRATIVE: pt had tripped last Saturday and fell backward, c/o pain at left hip/buttock area since then denies any other injuries or any other concerns, she si ambulatory. hip/buttock Pain Score (Numeric/FACES): 7 - Related Data Allergies Allergy/AdvReac Type Severity Reaction Status Date / Time Sulfa (Sulfonamide Allergy Rash Verified 09/27/18 22:57 Antibiotics) Home Meds: Home Meds buPROPion HCl [Wellbutrin Xl] 150 mg PO DAILY 10/04/14 [History] buPROPion HCl [Wellbutrin Xl] 300 mg PO DAILY 10/04/14 [History] busPIRone HCl [Buspirone HCl] 7.5 mg PO BID 10/04/14 [History] Calcium Carbonate/Vitamin D3 [Oyster Shell Calcium with Vitamin D] 2 tab PO WITHBREAKFAST 11/13/16 [History] Omeprazole 20 mg PO DAILY@0600 11/13/16 [History] amLODIPine [Norvasc] 5 mg PO DAILY 11/13/16 [History] ALPRAZolam [Xanax] 1 mg PO TID PRN 01/24/18 [History] Acetaminophen [Tylenol Extra Strength] 1,000 mg PO Q8H 01/24/18 [History] Citalopram Hydrobromide [Celexa] 40 mg PO DAILY 01/24/18 [History] Levothyroxine 112 mcg PO DAILY@0600 01/24/18 [History] Lutein/Minerals/Vit A,C & E [Ocuvite] 1 tab PO DAILY 01/24/18 [History] Propranolol HCl [Inderal LA] 180 mg PO BEDTIME 01/24/18 [History] cycloSPORINE [Restasis] 1 drop EYEBOTH BID 01/24/18 [History] Apixaban [Eliquis] 2.5 mg PO BID #50 tablet 01/27/18 [Rx] Past Medical History HEENT History: Reports: Impaired Vision Cardiovascular History: Reports: Hypertension Gastrointestinal History: Reports: Other (See Below) Other Gastrointestinal History: occassional indegestion Genitourinary History: Reports: Urinary Incontinence 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: , Spontaneous Psychiatric History: Reports: Anxiety, Depression Endocrine/Metabolic History: Reports: Obesity/BMI 30+ - Infectious Disease History Infectious Disease History: Reports: Chicken Pox, Measles, Mumps - Past Surgical History HEENT Surgical History: Reports: Adenoidectomy, Cataract Surgery, Tonsillectomy Female Surgical History: Reports: Other (See Below) Other Female Surgeries/Procedures: KIDNEY SURGERY TO REMOVE STONE Musculoskeletal Surgical History: Reports: Knee Replacement, Other (See Below) Other Musculoskeletal Surgeries/Procedures:: back surgery, Lumbar Social & Family History - Family History Family Medical History: Noncontributory - Caffeine Use Caffeine Use: Reports: Coffee - Living Situation & Occupation Living situation: Reports: ED ROS GENERAL - Review of Systems Review Of Systems: See Below Constitutional: Reports: No Symptoms HEENT: Reports: No Symptoms Respiratory: Reports: No Symptoms Cardiovascular: Reports: No Symptoms GI/Abdominal: Reports: No Symptoms Neurological: Reports: No Symptoms ED EXAM, GENERAL - Physical Exam Exam: See Below Exam Limited By: No Limitations General Appearance: Alert, Mild Distress Eye Exam: Bilateral Eye: Conjunctival Injection Throat/Mouth: Normal Inspection, Normal Lips, Normal Teeth, Normal Gums, Normal Oropharynx, Normal Voice, No Airway Compromise Neck: Normal Inspection, Supple Respiratory/Chest: No Respiratory Distress Cardiovascular: Normal Peripheral Pulses, Regular Rate, Rhythm GI/Abdominal: Normal Bowel Sounds, Soft, Non-Tender Back Exam: Normal Inspection Extremities: Other (tender over left buttock area which has bruising, ROM at left hip is full. ) Course - Vital Signs Text/Narrative:: Xray of left hip shows no acute findings, pt has soft tissue contusion at buttock area and supportive mng was recommended. - Orders/Labs/Meds Orders: Active Orders 24 hr Category Date Time Status Hip Min 2V or 3V Lt [CR] Stat Exams 09/27/18 23:00 Taken Departure - Departure Time of Disposition: 23:30 Disposition: Home, Self-Care 01 Clinical Impression: Contusion, buttock - Discharge Information Referrals: Noah Taveras MD [Primary Care Provider] - - Problem List & Annotations (1) Contusion, buttock SNOMED Code(s): 53528087 Code(s): S30.0XXA - CONTUSION OF LOWER BACK AND PELVIS, INITIAL ENCOUNTER Status: Acute Current Visit: Yes Qualifiers: Encounter type: initial encounter Qualified Code(s): S30.0XXA - Contusion of lower back and pelvis, initial encounter - My Orders Last 24 Hours: My Active Orders 09/27/18 23:00 Hip Min 2V or 3V Lt [CR] Stat - Assessment/Plan Last 24 Hours: My Active Orders 09/27/18 23:00 Hip Min 2V or 3V Lt [CR] Stat Plan: apply cold compresses to affected area, use over the counter tylenol as directed , follow with your physician if needed.
[2018-09-27 23:49] VITALS: BP 129/76
--- NOTE | 2018-09-29 15:45 | CR ---
INDICATION: Left hip pain - fell on 09/22/18. LEFT HIP WITH PELVIS: Frontal view of the pelvis with frontal and lateral views of the left hip were obtained 09/27/18 - comparison CT abdomen of . Mild hypertrophic degenerative changes are noted at the hip joint on the left and only minimally on the right. The hip joint spaces are well maintained. Mild hypertrophic degenerative changes are noted at the left sacroiliac joint. Fusion is noted at the L5-S1 level. Overall bone density appears to be fairly normal. No evidence of an acute fracture or dislocation was seen. IMPRESSION: 1. No acute fracture or dislocation. 2. 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 MTDD
== END 2018-09-27 23:35 | disposition home or self-care (01) ==
LOC: FB.ED 22:42
DX: S30.0XXA Contusion of lower back and pelvis, initial encounter (principal); I10 Essential (primary) hypertension; F41.9 Anxiety disorder, unspecified; F32.9 Major depressive disorder, single episode, unspecified; Z79.899 Other long term (current) drug therapy; Z88.2 Allergy status to sulfonamides; W01.0XXA Fall on same level from slipping, tripping and stumbling without subsequent striking against object, initial encounter; Z79.01 Long term (current) use of anticoagulants
CPT/HCPCS: 73502-LT; 99283-25

== ENCOUNTER 2018-10-02 21:04 | Emergency (ER) | payer MEDICARE, OTHER ==
[2018-10-02] MEDS ORDERED: Ondansetron 4 MG/2 ML SDV IVPUSH ONE (21:41)
[2018-10-02] MEDS ORDERED: Sodium Chloride 0.9% 1,000 ML IV SCH (21:45)
--- NOTE | 2018-10-02 21:47 | EDM.PDOC ---
ED HPI GENERAL MEDICAL PROBLEM - General Stated Complaint: SICK Time Seen by Provider: 10/02/18 21:04 Source of Information: Reports: Patient, Family History Limitations: Reports: Physical Impairment - History of Present Illness INITIAL COMMENTS - FREE TEXT/NARRATIVE: 73 y.o.w.f narayan a stent placed in her right ureter at [place] and was doing fine on D/C. During the ride back home she felt suddenly very weak, unable to ambulate. Her SO brought her home for 30 min and then decided to bring her to the ED. On arrival, pt was extremely weak, not able to give a HPI, but said, she has no pain. No N/V/D. She has to go frequently to the bathroom. BP 116/ 71 Pulse 104 Sa 95 RR 14 Pulse ox 100% on RA Onset Date: 10/02/18 Onset Time: 17:00 Duration: Hour(s):, Getting Worse Location: Reports: Generalized Quality: Reports: Other (weak) Severity: Moderate Improves with: Reports: None Worsens with: Reports: None Context: Reports: Other Associated Symptoms: Reports: Weakness - Related Data Allergies Allergy/AdvReac Type Severity Reaction Status Date / Time Sulfa (Sulfonamide Allergy Rash Verified 09/27/18 22:57 Antibiotics) Home Meds: Home Meds buPROPion HCl [Wellbutrin Xl] 150 mg PO DAILY 10/04/14 [History] buPROPion HCl [Wellbutrin Xl] 300 mg PO DAILY 10/04/14 [History] busPIRone HCl [Buspirone HCl] 7.5 mg PO BID 10/04/14 [History] Calcium Carbonate/Vitamin D3 [Oyster Shell Calcium with Vitamin D] 2 tab PO WITHBREAKFAST 11/13/16 [History] Omeprazole 20 mg PO DAILY@0600 11/13/16 [History] amLODIPine [Norvasc] 5 mg PO DAILY 11/13/16 [History] ALPRAZolam [Xanax] 1 mg PO TID PRN 01/24/18 [History] Acetaminophen [Tylenol Extra Strength] 1,000 mg PO Q8H 01/24/18 [History] Citalopram Hydrobromide [Celexa] 40 mg PO DAILY 01/24/18 [History] Levothyroxine 112 mcg PO DAILY@0600 01/24/18 [History] Lutein/Minerals/Vit A,C & E [Ocuvite] 1 tab PO DAILY 01/24/18 [History] Propranolol HCl [Inderal LA] 180 mg PO BEDTIME 01/24/18 [History] cycloSPORINE [Restasis] 1 drop EYEBOTH BID 01/24/18 [History] Apixaban [Eliquis] 2.5 mg PO BID #50 tablet 01/27/18 [Rx] Ciprofloxacin HCl [Cipro] 500 mg PO BID #20 tablet 10/03/18 [Rx] Magnesium Chloride [Slow-Mag] 71.5 mg PO DAILY #5 tablet. 10/03/18 [Rx] Past Medical History HEENT History: Reports: Impaired Vision Cardiovascular History: Reports: Hypertension Gastrointestinal History: Reports: Other (See Below) Other Gastrointestinal History: occassional indegestion Genitourinary History: Reports: Urinary Incontinence SLATE MIXER History: Reports: , Spontaneous Psychiatric History: Reports: Anxiety, Depression Endocrine/Metabolic History: Reports: Obesity/BMI 30+ - Infectious Disease History Infectious Disease History: Reports: Chicken Pox, Measles, Mumps - Past Surgical History HEENT Surgical History: Reports: Adenoidectomy, Cataract Surgery, Tonsillectomy Female Surgical History: Reports: Other (See Below) Other Female Surgeries/Procedures: KIDNEY SURGERY TO REMOVE STONE Musculoskeletal Surgical History: Reports: Knee Replacement, Other (See Below) Other Musculoskeletal Surgeries/Procedures:: back surgery, Lumbar Social & Family History - Family History Family Medical History: Noncontributory - Caffeine Use Caffeine Use: Reports: Coffee - Living Situation & Occupation Living situation: Reports: ED ROS GENERAL - Review of Systems Review Of Systems: Unable To Obtain (to weak, too tired) ED EXAM, NEURO - Physical Exam Exam: See Below Exam Limited By: Physical Impairment General Appearance: WD/WN, Lethargic, Moderate Distress Eye Exam: Bilateral Eye: Normal Inspection Ears: Normal External Exam Nose: Normal Inspection, Normal Mucosa, No Blood Throat/Mouth: Normal Inspection, Normal Lips, Normal Voice, No Airway Compromise , Other (poor dentition) Head Exam: Atraumatic, Normocephalic Neck: Normal Inspection, Supple, Non-Tender, Full Range of Motion Respiratory/Chest: No Respiratory Distress, Lungs Clear (poor insp effort) Cardiovascular: Normal Peripheral Pulses, Regular Rate, Rhythm, No Edema, No Gallop GI/Abdominal: Normal Bowel Sounds, Soft, Non-Tender, No Organomegaly, No Abnormal Bruit, No Mass, Pelvis Stable (Female) Exam: Deferred Rectal (Female) Exam: Deferred Neurological: CN II-XII Intact, Abnormal Gait (to weak to ambulate) Back Exam: Normal Inspection, Full Range of Motion Extremities: Normal Inspection, Normal Range of Motion Psychiatric: Flat Affect Skin Exam: Warm, Dry, Intact, Normal Color, No Rash EKG INTERPRETATION EKG Date: 10/02/18 Time: 22:00 Rhythm: NSR Rate (Beats/Min): 116 [place]: Normal P-Wave: Present QRS: Normal ST-T: Normal QT: Normal Comparison: NA - No Prior EKG Course - Vital Signs Text/Narrative:: 73 y.o.w.f narayan a stent placed in her right ureter at [place] and was doing fine on D/C. During the ride back home she felt suddenly very weak, unable to ambulate. Her SO brought her home for 30 min and then decided to bring her to the ED. On arrival, pt was extremely weak, not able to give a HPI, but said, she has no pain. No N/V/D. She has to go frequently to the bathroom. BP 116/ 71 Pulse 104 Sa 95 RR 14 Pulse ox 100% on RA PE: Weak appearing 73 y.o.w.f Labs: Mg 1.1 K 2.9 lactic acid 2.5 Glc 124 Impression: S/P right ureter stent placement, Hypomagnesemia, Hypokalemia UTI Tx: Md, potassium. Levaquin. NS Reexam: Pt improved, was ambulating fine on D/C Plan: D/C with instructions - Orders/Labs/Meds Orders: Active Orders 24 hr Category Date Time Status EKG Documentation Completion [RC] ASDIRECTED Care 10/02/18 21:40 Active Head wo Cont [CT] Stat Exams 10/02/18 21:39 Taken CULTURE BLOOD [BC] Urgent Lab 10/02/18 22:15 Received CULTURE BLOOD [BC] Urgent Lab 10/02/18 22:22 Received Blood Culture x2 Reflex Set [OM.PC] Urgent Oth 10/02/18 21:40 Ordered EKG 12 Lead [EK] Routine Ther 10/02/18 21:39 Ordered Labs: Laboratory Tests 10/02/18 10/02/1810/02/19 Range/Units 21:40 22:15 22:15 WBC 10.9 (4.5-12.0) X10-3/uL RBC 4.30 (3.23-5.20) x10(6)uL Hgb 13.5 (11.5-15.5) g/dL Hct 38.7 (30.0-51.3) % MCV 90.1 (80-96) fL MCH 31.4 (27.7-33.6) pg MCHC 34.8 (32.2-35.4) g/dL RDW 12.0 (11.5-15.5) % Plt Count 135 (125-369) X10(3)uL MPV 9.5 (7.4-10.4) fL Add Manual Diff Yes Neutrophils % (Manual) 96 H (46-82) % Lymphocytes % (Manual) 3 L (13-37) % Eosinophils % (Manual) 1 (0-5) % Sodium 141 (135-145) mmol/L Potassium 2.9 L (3.5-5.3) mmol/L Chloride 103 (100-110) mmol/L Carbon Dioxide 24 (21-32) mmol/L BUN 12 (7-18) mg/dL Creatinine 1.0 (0.55-1.02) mg/dL Est Cr Clr Drug Dosing TNP Estimated GFR (MDRD) 54 L (>60) BUN/Creatinine Ratio 12.0 (9-20) Glucose 147 H (80-116) mg/dL Lactic Acid (0.4-2.2) mmol/L Calcium 8.7 (8.6-10.2) mg/dL Magnesium (1.8-2.5) mg/dL Urine Color Red (YELLOW) Urine Appearance Slightly cloudy (CLEAR) Urine pH 5.0 (5.0-6.5) Ur Specific [place] 1.010 (1.010-1.025) Urine Protein 100 H (NEGATIVE) mg/dL Urine Glucose (UA) Normal (NORMAL) mg/dL Urine Ketones Negative (NEGATIVE) mg/dL Urine Occult Blood Large H (NEGATIVE) Urine Nitrite Negative (NEGATIVE) Urine Bilirubin Negative (NEGATIVE) Urine Urobilinogen Normal (NEGATIVE) mg/dL Ur Leukocyte Esterase Small H (NEGATIVE) Urine RBC Packed H (0-5) Urine WBC 5-10 H (0-5) Ur Squamous Epith Cells Occasional (NS,R,O) Urine Bacteria Few H (NS) 10/02/18 10/02/18 Range/Units 22:15 22:15 WBC (4.5-12.0) X10-3/uL RBC (3.23-5.20) x10(6)uL Hgb (11.5-15.5) g/dL Hct (30.0-51.3) % MCV (80-96) fL MCH (27.7-33.6) pg MCHC (32.2-35.4) g/dL RDW (11.5-15.5) % Plt Count (125-369) X10(3)uL MPV (7.4-10.4) fL Add Manual Diff Neutrophils % (Manual) (46-82) % Lymphocytes % (Manual) (13-37) % Eosinophils % (Manual) (0-5) % Sodium (135-145) mmol/L Potassium (3.5-5.3) mmol/L Chloride (100-110) mmol/L Carbon Dioxide (21-32) mmol/L BUN (7-18) mg/dL Creatinine (0.55-1.02) mg/dL Est Cr Clr Drug Dosing Estimated GFR (MDRD) (>60) BUN/Creatinine Ratio (9-20) Glucose (80-116) mg/dL Lactic Acid 2.4 H (0.4-2.2) mmol/L Calcium (8.6-10.2) mg/dL Magnesium 1.1 L* (1.8-2.5) mg/dL Urine Color (YELLOW) Urine Appearance (CLEAR) Urine pH (5.0-6.5) Ur Specific [place] (1.010-1.025) Urine Protein (NEGATIVE) mg/dL Urine Glucose (UA) (NORMAL) mg/dL Urine Ketones (NEGATIVE) mg/dL Urine Occult Blood (NEGATIVE) Urine Nitrite (NEGATIVE) Urine Bilirubin (NEGATIVE) Urine Urobilinogen (NEGATIVE) mg/dL Ur Leukocyte Esterase (NEGATIVE) Urine RBC (0-5) Urine WBC (0-5) Ur Squamous Epith Cells (NS,R,O) Urine Bacteria (NS) Meds: Medications Discontinued Medications Generic Name Dose Route Start Last Admin Trade Name Freq PRN Reason Stop Dose Admin Ciprofloxacin 500 mg 05/24/19 01:04 10/03/18 01:25 Ciprofloxacin Hcl PO 10/03/18 01:05 500 mg ONETIME STA Administration Sodium Chloride 1,000 mls @ 125 mls/hr 10/02/18 21:45 10/02/18 23:25 Normal Saline IV 125 mls/hr ASDIRECTED MO Administration Magnesium Sulfate 50 mls @ 50 mls/hr 10/02/18 23:45 10/02/18 23:52 Magnesium Sulfate In Water Premix IV 10/03/18 00:44 50 mls/hr ONETIME ONE Administration Ondansetron HCl 8 mg 10/02/18 21:41 10/02/18 23:30 Zofran IVPUSH 10/02/18 21:42 8 mg ONETIME ONE Administration Potassium Chloride 40 meq 10/02/18 23:15 10/02/18 23:30 Klor-Con M20 PO 10/02/18 23:16 40 meq ONETIME ONE Administration Potassium Chloride 40 meq 10/03/18 01:53 10/03/18 05:22 Klor-Con M20 PO 10/03/18 01:54 40 meq ONETIME ONE Administration Potassium Chloride Confirm 10/03/18 01:58 10/03/18 05:21 Klor-Con M20 Administered 10/03/18 01:59 Not Given Dose 40 meq .ROUTE .STK-MED ONE Departure - Departure Time of Disposition: 01:34 Disposition: Home, Self-Care 01 Condition: Good Clinical Impression: Hypokalemia, Hypomagnesemia UTI (urinary tract infection) Qualifiers: Urinary tract infection type: acute cystitis Hematuria presence: with hematuria Qualified Code(s): N30.01 - Acute cystitis with hematuria - Discharge Information Prescriptions: Ciprofloxacin HCl [Cipro] 500 mg PO BID #20 tablet Magnesium Chloride [Slow-Mag] 71.5 mg PO DAILY #5 tablet. Referrals: Noah Taveras MD [Primary Care Provider] - Forms: ED Department Discharge Additional Instructions: Please increase water intake, please take the potassium tablet after 6 am today. Please take Cipro and Slow Mag as recommended, please get your Magnesium and Potassium level check in 5 days. HOLD off taking the Cephalexin as prescribed in [place]. Please f/u, come back if your symptoms get worse acutely. - My Orders Last 24 Hours: My Active Orders 10/02/18 21:39 Head wo Cont [CT] Stat EKG 12 Lead [EK] Routine 10/02/18 21:40 EKG Documentation Completion [RC] ASDIRECTED Blood Culture x2 Reflex Set [OM.PC] Urgent 10/02/18 22:15 CULTURE BLOOD [BC] Urgent 10/02/18 22:22 CULTURE BLOOD [BC] Urgent - Assessment/Plan Last 24 Hours: My Active Orders 10/02/18 21:39 Head wo Cont [CT] Stat EKG 12 Lead [EK] Routine 10/02/18 21:40 EKG Documentation Completion [RC] ASDIRECTED Blood Culture x2 Reflex Set [OM.PC] Urgent 10/02/18 22:15 CULTURE BLOOD [BC] Urgent 10/02/18 22:22 CULTURE BLOOD [BC] Urgent
[2018-10-02] MEDS ORDERED: Potassium Chloride 20 MEQ Tab.ER PO ONE (23:15)
[2018-10-02] MEDS ORDERED: Magnesium Sulfate/Water 50 ML IV ONE (23:45)
[2018-10-03] MEDS ORDERED: Ciprofloxacin 500 MG Tab PO STA (01:04)
[2018-10-03] MEDS ORDERED: Potassium Chloride 20 MEQ Tab.ER PO ONE (01:53)
[2018-10-03] MEDS ORDERED: Potassium Chloride 20 MEQ Tab.ER ONE (01:58)
[2018-10-07 01:24] VITALS: BP 108/72
== END 2018-10-03 02:00 | disposition home or self-care (01) ==
LOC: FB.ED 21:04
DX: N30.01 Acute cystitis with hematuria (principal); E87.6 Hypokalemia; E83.42 Hypomagnesemia; Z95.5 Presence of coronary angioplasty implant and graft; Z79.899 Other long term (current) drug therapy; I10 Essential (primary) hypertension; F41.9 Anxiety disorder, unspecified; F32.9 Major depressive disorder, single episode, unspecified; Z79.01 Long term (current) use of anticoagulants; Z88.2 Allergy status to sulfonamides
CPT/HCPCS: 36415; 70450; 80048; 81001; 83605; 83735; 85025; 87040; 93005; 96365; 96375; 99283-25; A9270-GY; J2405; J3475; J7030

== ENCOUNTER 2021-06-29 21:10 | Emergency (ER) | payer MEDICARE ==
[2021-06-29 21:21] VITALS: BP 140/88; PULSE 80
== END 2021-06-29 21:40 | disposition left against medical advice (07) ==
LOC: SUPCPDRO 21:10 → FB.ED 21:10
DX: R26.81 Unsteadiness on feet (principal); Z53.21 Procedure and treatment not carried out due to patient leaving prior to being seen by health care provider

== ENCOUNTER 2021-07-27 09:55 | Emergency (ER) | payer MEDICARE ==
[2021-07-27] MEDS ORDERED: Acetaminophen/HYDROcodone 325-5 MG Tab PO STA (10:07)
[2021-07-27] MEDS ORDERED: Ketorolac 30 MG/ML SDV IM STA (10:09)
[2021-07-27] MEDS ORDERED: Acetaminophen/HYDROcodone 325-5 MG Tab ONE (10:29)
[2021-07-27 16:30] VITALS: BP 124/107; PULSE 78
== END 2021-07-27 11:30 | disposition home or self-care (01) ==
LOC: FB.ED 09:55
DX: M19.90 Unspecified osteoarthritis, unspecified site (principal); I10 Essential (primary) hypertension; E78.00 Pure hypercholesterolemia, unspecified; E66.9 Obesity, unspecified; Z79.899 Other long term (current) drug therapy; Z88.2 Allergy status to sulfonamides; Z68.29 Body mass index [BMI] 29.0-29.9, adult
CPT/HCPCS: 96372; 99283; A9270; J1885

== ENCOUNTER 2023-02-04 12:04 | Emergency (ER) | payer MEDICARE, OTHER ==
[2023-02-04] MEDS ORDERED: Sodium Chloride 0.9% 10 ML Syringe FLUSH PRN (12:08)
[2023-02-04 12:48] LABS: BASOPHILS PERCENT AUTO 0.5 % (0.2-1.5); EOSINOPHILS ABSOLUTE AUTO 0.2 x10-3/uL (0.0-0.8); EOSINOPHILS PERCENT AUTO 2.7 % (0.6-8.1); HEMATOCRIT 36.4 % (34.2-48.2); HEMOGLOBIN 11.8 g/dL (11.4-15.5); LYMPHOCYTES PERCENT AUTO 32.3 % (18.4-52.1); MEAN CORPUSCULAR HEMOGLOBIN 26.7 pg (23.9-33.9); MEAN CORPUSCULAR HGB CONC 32.5 g/dL (31.9-34.8); MEAN CORPUSCULAR VOLUME 82.2 fL (76.7-100.5); MEAN PLATELET VOLUME 9.2 fL (7.1-12.4); MONOCYTES ABSOLUTE AUTO 0.4 x10-3/uL (0.3-1.0); MONOCYTES PERCENT AUTO 6.2 % (4.4-15.7); NEUTROPHILS ABSOLUTE AUTO 3.6 x10-3/uL (1.5-6.3); NEUTROPHILS PERCENT AUTO 58.3 % (30.8-76.2); PLATELET COUNT,PLT 286 x10(3)uL (151-488); RED BLOOD CELL COUNT 4.42 x10(6)uL (3.60-5.20); RED CELL DISTRIBUTION WIDTH 14.9 % (12.3-16.5); WHITE BLOOD CELL COUNT,WBC 6.1 x10-3/uL (3.0-10.3)
[2023-02-04 12:51] LABS: BLOOD UREA NITROGEN,BUN 12 mg/dL (7-18); CALCIUM 8.7 mg/dL (8.6-10.2); CARBON DIOXIDE,CO2 24 mmol/L (21-32); CHLORIDE,CL 104 mmol/L (100-110); ESTIMATED GFR 58 mL/min (>60); GLUCOSE RANDOM 92 mg/dL (80-116); POTASSIUM,K 3.6 mmol/L (3.5-5.3); SODIUM,NA 139 mmol/L (135-145)
[2023-02-04 12:57] LABS: ACETAMINOPHEN 19 ug/mL (<2); ALANINE AMINOTRANSFERASE,ALT 18 U/L (12-36); ALBUMIN 3.6 g/dL (3.2-4.6); ALKALINE PHOSPHATASE 88 IU/L (56-112); ASPARTATE AMNIOTRANSFERASE,AST 20 IU/L (5-25); BILIRUBIN TOTAL 0.5 mg/dL (0.1-1.3); PROTEIN TOTAL,TP 7.4 g/dL (6.0-8.0); SALICYLATE 0.4 mg/dL (<2.8)
[2023-02-04 13:03] LABS: BILIRUBIN,URINE NEGATIVE (NEGATIVE); GLUCOSE,URINE NORMAL (NORMAL); KETONES,URINE NEGATIVE (NEGATIVE); LEUKOCYTE ESTERASE,URINE MODERATE (NEGATIVE); NITRITE,URINE NEGATIVE (NEGATIVE); OCCULT BLOOD,URINE NEGATIVE (NEGATIVE); PROTEIN,URINE NEGATIVE (NEGATIVE); UROBILINOGEN,URINE NORMAL (NEGATIVE)
[2023-02-04 13:07] LABS: APPEARANCE,URINE CLOUDY (CLEAR); COLOR,URINE YELLOW (YELLOW); RBC,URINE 0-5 (0-5); RENAL EPITHELIAL CELLS,URINE FEW (NS); WBC,URINE 30-40 (0-5)
[2023-02-04 13:07] LABS: ETHANOL BLOOD MEDICAL < 0.03 % (<0.03); TSH ULTRASENSITIVE 45.59 IU/mL (0.36-3.74)
[2023-02-04 13:08] LABS: BACTERIA,URINE MANY (NS)
[2023-02-04 13:12] LABS: AMPHETAMINES SCREEN, URINE NEGATIVE (NEGATIVE); BARBITURATE SCREEN,URINE NEGATIVE (NEGATIVE); BENZODIAZEPINES SCREEN,URINE NEGATIVE (NEGATIVE); BUPRENORPHINE SCREEN,URINE NEGATIVE (NEGATIVE); METHADONE SCREEN, URINE NEGATIVE (NEGATIVE); METHAMPHETAMINE SCREEN, URINE NEGATIVE (NEGATIVE); OXYCODONE SCREEN,URINE NEGATIVE (NEGATIVE); PROPOXYPHENE SCREEN,URINE NEGATIVE (NEGATIVE); THC SCREEN,URINE NEGATIVE (NEGATIVE)
[2023-02-04 14:20] VITALS: BP 163/95; PULSE 79
== END 2023-02-04 14:10 | disposition home or self-care (01) ==
LOC: FB.ED 12:04
DX: T39.1X1A Poisoning by 4-Aminophenol derivatives, accidental (unintentional), initial encounter (principal); N39.0 Urinary tract infection, site not specified; Z88.2 Allergy status to sulfonamides
CPT/HCPCS: 36415; 80053; 80143; 80179; 80307; 81001; 84439; 84443; 85025; 87086; 87088; 87186; 99284

== ENCOUNTER 2024-09-09 16:26 | Emergency (ER) | payer MEDICARE ==
[2024-09-09] MEDS: traMADol 50 MG Tab PO ONE (17:14)
[2024-09-09] MEDS: Acetaminophen 500 MG Tab PO ONE (17:14)
[2024-09-09] MEDS: Cyclobenzaprine 10 MG Tab PO ONE (17:14)
[2024-09-09 18:25] VITALS: BP 166/88; PULSE 90
== END 2024-09-09 19:04 | disposition home or self-care (01) ==
LOC: FB.ED 16:26
DX: M50.30 Other cervical disc degeneration, unspecified cervical region (principal); I10 Essential (primary) hypertension; E78.00 Pure hypercholesterolemia, unspecified; E21.3 Hyperparathyroidism, unspecified; Z88.2 Allergy status to sulfonamides; Z79.899 Other long term (current) drug therapy; Z79.890 Hormone replacement therapy
CPT/HCPCS: 72040; 99283; A9270-GY

== ENCOUNTER 2024-11-14 13:01 | Emergency (ER) | payer MEDICARE ==
[2024-11-14 13:50] LABS: BASOPHILS ABSOLUTE AUTO 0.1 x10-3/uL (0.0-0.1); BASOPHILS PERCENT AUTO 1.1 % (0.2-1.5); EOSINOPHILS ABSOLUTE AUTO 0.1 x10-3/uL (0.0-0.8); EOSINOPHILS PERCENT AUTO 1.2 % (0.6-8.1); LYMPHOCYTES ABSOLUTE AUTO 1.6 x10-3/uL (1.0-4.4); LYMPHOCYTES PERCENT AUTO 28.3 % (18.4-52.1); MEAN PLATELET VOLUME 9.2 fL (7.1-12.4); MONOCYTES ABSOLUTE AUTO 0.4 x10-3/uL (0.3-1.0); MONOCYTES PERCENT AUTO 6.8 % (4.4-15.7); NEUTROPHILS ABSOLUTE AUTO 3.4 x10-3/uL (1.5-6.3); NEUTROPHILS PERCENT AUTO 62.6 % (30.8-76.2); PLATELET COUNT,PLT 288 x10(3)uL (151-488); RED BLOOD CELL COUNT 4.43 x10(6)uL (3.60-5.20); RED CELL DISTRIBUTION WIDTH 17.1 % (12.3-16.5); WHITE BLOOD CELL COUNT,WBC 5.5 x10-3/uL (3.0-10.3)
[2024-11-14 14:16] LABS: BLOOD UREA NITROGEN,BUN 10 mg/dL (7-18); CARBON DIOXIDE,CO2 30 mmol/L (21-32); CHLORIDE,CL 104 mmol/L (100-110); CREATININE 1.0 mg/dL (0.55-1.02); EST CRCL DRUG DOSING (CG) 38.75 mL/min; ESTIMATED GFR 57 mL/min (>60); GLUCOSE RANDOM 107 mg/dL (80-116); POTASSIUM,K 3.4 mmol/L (3.5-5.3); SODIUM,NA 141 mmol/L (135-145)
[2024-11-14 14:41] LABS: SEDIMENTATION RATE MANUAL 60 mm/hr (0-20)
[2024-11-14 16:06] VITALS: BP 145/92; PULSE 82
== END 2024-11-14 15:10 | disposition home or self-care (01) ==
LOC: FB.ED 13:01
DX: M19.041 Primary osteoarthritis, right hand (principal); E78.00 Pure hypercholesterolemia, unspecified; I10 Essential (primary) hypertension; Z79.899 Other long term (current) drug therapy; Z79.890 Hormone replacement therapy; Z88.2 Allergy status to sulfonamides
CPT/HCPCS: 36415; 73110-RT; 80048; 84550; 85025; 85651; 86140; 99283